=== PATIENT | male | born 1960 | race Caucasian/White ===

== ENCOUNTER → 2021-05-24 10:40 | Outpatient (CLI) | payer BC, SELFPAY ==
--- NOTE | ~2021-05-24 | XR_ITS ---
XR hip LT min 2V DATE: 05/24/2021 11:57 INDICATION: Left hip pain TECHNIQUE: AP and lateral views COMPARISON: None FINDINGS: There is moderate osteoarthritic change at the left hip joint including moderately prominen t spurring of the acetabulum and femoral head. There is mild hip joint space narrowing. No fracture, dislocation, avascular necrosis or bone destruction of the left hip is evident. The pubic symphysis and sacroiliac joints appear intact. IMPRESSION: Moderately prominent osteoarthritic change of left hip Reviewed, dictated and finalized at location A. [employer]
== END ==
PROVIDERS: Visit Provider Family Medicine
DX: M16.12 Unilateral primary osteoarthritis, left hip (principal)
CPT/HCPCS: 73502

== ENCOUNTER 2021-05-31 09:24 | Outpatient (CLI) | payer BC, SELFPAY ==
--- NOTE | ~2021-05-31 | XR_ITS ---
EXAMINATION: XR lg joint inject/asp w image DATE: 05/31/2021 10:18 INDICATION: Left hip arthritis. TECHNIQUE: A time-out was performed to verify the patient's name, date of , and procedure to b e performed. The procedure including the risks, benefits, and alternatives was discussed with the pat ient. Risks discussed included bleeding and infection. The patient understood the risks and agreed to proceed. The skin overlying the left hip joint was prepped and draped in usual sterile fashion. An esthetic was administered with 1% lidocaine subcutaneously. A 22 G needle was advanced under fluoros copic guidance into the joint. Injection of 1 mL of Omnipaque 240 confirmed intra-articular position of the needle. Subsequently, injectate consisting of 5 mL 1% lidocaine and 1 mL 40 mg/mL triamcinol one was instilled. The needle was removed and the entry site was cleaned and dressed. There were no immediate complications. Fluoroscopy exposure time was 0.1 minutes. The total number of images was 2 . FINDINGS: Real-time fluoroscopy demonstrates the needle in the left hip joint. Patient's pain prior t o procedure:5/10. Patient's pain following the procedure: 0/10. IMPRESSION: 1. Fluoroscopy guided left hip joint injection of local anesthetic and steroid with decrease in the p atient's presenting pain. Reviewed, dictated and finalized at location A. [employer] IMPRESSION: 1. Fluoroscopy guided left hip joint injection of local anesthetic and steroid with decrease in the patient's presenting pain.
== END 2021-05-31 09:25 | disposition home or self-care (01) ==
PROVIDERS: PCP Family Medicine; Visit Provider Family Medicine
DX: M16.12 Unilateral primary osteoarthritis, left hip (principal)
CPT/HCPCS: 20610; 77002; J3301; Q9966

== ENCOUNTER 2021-07-16 01:00 | Day surgery (SDC) | payer BC, SELFPAY ==
[2021-07-08 14:44] VITALS: BMI 29.3
[2021-07-16 07:31] VITALS: BP 167/86; PULSE 79; RESP 18; TEMP 36.8; O2SAT 98; BMI 28.9
[2021-07-16] MEDS: LACTATED RINGERS 1,000 ML 150 ML IV CONT (07:37)
--- NOTE | 2021-07-16 07:58 | WPDGICN ---
Assessment and Plan Assessment and plan (1) Encounter for screening colonoscopy: Code(s): Z12.11 - Encounter for screening for malignant neoplasm of colon Status: Acute Assessment and Plan: Patient presents for neoplasia screening. It is been 9 or 10 years since last screening colonoscopy. High-fiber diet is advised. Further recommendations may be given after endoscopy. (2) Fecal urgency: Code(s): R15.2 - Fecal urgency Status: Acute Assessment and Plan: Patient has had a change in bowel habits with fecal urgency. Plan to add fiber to his diet. colonoscopy is scheduled for screening in will be used to evaluate and exclude any organic disease that may be contributing to these changes. GI Consult Note Consult date/time: 07/16/21 07:58 HPI: Sachin Diane is a 60 year old male Presents for neoplasia screening. Patient last colonoscopy was 9 or 10 years previous. Patient reports that over the last 3 months he has had urgency with bowel movements. He denies abdominal pain. He has had no bleeding. His family history is noncontributory. He presents today for screening colonoscopy Review of Systems Review of Systems: All systems reviewed & are unremarkable except as noted in HPI and below PMFSH Past Medical History Medical History (Updated 07/16/21 @ 08:00 by Qamar Zheng MD) Anxiety Arthritis Depression Hypertension Overweight Family History Family History Mother Family history of arthritis Social History Social History Smoking packs per day: 1.5 Smoking cigarettes per day: 30.0 Years smoked: 10 Smoking pack-years: 15.00 Smoking status: Former smoker Smoking end date: 05/04/83 Substance use type: does not use Living arrangements: alone Spiritual care concerns: No Meds Home Medications and Allergies Home Medications Medication Instructions Recorded Confirmed Type amlodipine 10 mg PO DAILY 04/20/19 07/08/21 History buspirone 15 mg PO DAILY 04/20/19 07/08/21 History sertraline 100 mg PO DAILY 04/20/19 07/08/21 History tamsulosin 0.4 mg PO DAILY 04/20/19 07/08/21 History candesartan 4 mg PO DAILY 07/08/21 07/08/21 History finasteride 5 mg PO DAILY 07/08/21 07/08/21 History Allergies Allergy/AdvReac Type Severity Reaction Status Date / Time No Known Allergies Allergy Verified 07/16/21 07:29 Vital Signs Vital Signs - 24 hr 07/16/21 07:31 Temperature 98.2 F Pulse Rate 79 Respiratory Rate 18 Blood Pressure 167/86 H Pulse Oximetry 98 Exam Narrative: physical exam reveals patient to be alert. Vital signs stable. HEENT exam is unremarkable. Patient is anicteric. Lungs are clear to auscultation and percussion. Heart is without murmur or extra sounds. Abdominal exam bowel sounds are present soft nontender with no organomegaly. Digital external rectal exam is normal.
--- NOTE | 2021-07-16 08:05 | WPDANESEPPF ---
Anes - Initial Pre Proc Eval Procedure: Operation Date: 07/16/21 08:30 Proposed Procedures p Screening Colonoscopy - Qamar Zheng MD Date/Time: 07/16/21 08:05 Surgeon: Qamar Zheng MD Pre Op Diagnosis: neoplasm screening Patient Data Age: 60 Gender: M Height: 1.8 m Weight: 94.2 kg Last Vital Signs Temp 98.2 F 07/16/21 07:31 Pulse 79 07/16/21 07:31 Resp 18 07/16/21 07:31 BP 167/86 H 07/16/21 07:31 Pulse Ox 98 07/16/21 07:31 Allergies Allergy/AdvReac Type Severity Reaction Status Date / Time No Known Allergies Allergy Verified 07/16/21 07:29 Home Medications Medication Instructions Recorded Confirmed Type amlodipine 10 mg PO DAILY 04/20/19 07/08/21 History buspirone 15 mg PO DAILY 04/20/19 07/08/21 History sertraline 100 mg PO DAILY 04/20/19 07/08/21 History tamsulosin 0.4 mg PO DAILY 04/20/19 07/08/21 History candesartan 4 mg PO DAILY 07/08/21 07/08/21 History finasteride 5 mg PO DAILY 07/08/21 07/08/21 History Patient hx anesthesia problems: none Family hx anesthesia problems: none Results Review: All pre-operative results and documents have been reviewed as part of the pre-operative evaluation. [facility] Past Medical History Medical History (Updated 07/16/21 @ 08:00 by Qamar Zheng MD) Anxiety Arthritis Depression Hypertension Overweight Family History Family History Mother Family history of arthritis Social History Social History Smoking packs per day: 1.5 Smoking cigarettes per day: 30.0 Years smoked: 10 Smoking pack-years: 15.00 Smoking status: Former smoker Smoking end date: 05/04/83 Substance use type: does not use Living arrangements: alone Spiritual care concerns: No Anes - Eval Final PreProcedure Day of Procedure 07/16/21 08:05 Patient weight: overweight Heart: regular rate and rhythm Lungs: clear to auscultation Airway: Mallampati scale class II Neurological: alert and oriented Last oral intake: >/= 8 hours ASA classification: III Emergent: no Anesthetic plan: proceed Anesthesia type and monitoring: general GIVS and standard monitoring Results Review: All pre-operative results and documents have been reviewed as part of the pre-operative evaluation. Informed Consent: The patient's anesthetic plan and its attendant risks and benefits were discussed with the patient/family/POA. Questions were solicited and answers provided to the satisfaction of the patient/family/POA.
[2021-07-16 08:48] VITALS: BP 123/72; PULSE 60; RESP 24; O2SAT 97
[2021-07-16 08:58] VITALS: BP 118/77; PULSE 57; RESP 19; O2SAT 100
[2021-07-16 09:08] VITALS: BP 126/80; PULSE 58; RESP 19; O2SAT 100
== END 2021-07-16 09:20 | disposition home or self-care (01) ==
PROVIDERS: PCP Family Medicine; Visit Provider Internal Medicine Gastroenterology
PROC: 0DJD8ZZ Inspection of Lower Intestinal Tract, Via Natural or Artificial Opening Endoscopic (ICD-10-PCS; CPT 45378; principal; 2021-07-16 08:30)
DX: Z12.11 Encounter for screening for malignant neoplasm of colon (principal); D12.3 Benign neoplasm of transverse colon; K64.8 Other hemorrhoids; R15.2 Fecal urgency; F41.8 Other specified anxiety disorders; Z87.891 Personal history of nicotine dependence
CPT/HCPCS: 45385; 88305; J2704; J7120

== ENCOUNTER 2021-11-18 12:30 | Outpatient (CLI) | payer BC, SELFPAY ==
--- NOTE | ~2021-11-18 | XR_ITS ---
EXAMINATION: XR lg joint inject/asp w image DATE: 11/18/2021 13:34 INDICATION: Osteoarthritis of left hip. TECHNIQUE: A time-out was performed to verify the patient's name, date of , and procedure to b e performed. The procedure including the risks, benefits, and alternatives was discussed with the pat ient. Risks discussed included bleeding and infection. The patient understood the risks and agreed to proceed. The skin overlying the left hip joint was prepped and draped in usual sterile fashion. An esthetic was administered with 1% lidocaine subcutaneously. A 22 G needle was advanced under fluoros copic guidance into the joint. Subsequently, injectate consisting of 5 mL 1% lidocaine and 1 mL 40 m g/mL triamcinolone was instilled. The needle was removed and the entry site was cleaned and dressed. There were no immediate complications. Fluoroscopy exposure time was 0.1 minutes. The total number of images was 1. FINDINGS: Real-time fluoroscopy demonstrates the needle in the left hip joint. Patient's pain prior t o procedure:4/10. Patient's pain following the procedure: 4/10. IMPRESSION: 1. Fluoroscopy guided left hip joint injection of local anesthetic and steroid . Reviewed, dictated and finalized at location A.
== END 2021-11-18 12:31 | disposition home or self-care (01) ==
PROVIDERS: PCP Family Medicine; Visit Provider Family Medicine
DX: M16.12 Unilateral primary osteoarthritis, left hip (principal)
CPT/HCPCS: 20610; 77002; J3301

== ENCOUNTER 2022-08-12 07:33 | Outpatient (CLI) | payer BC, SELFPAY ==
--- NOTE | 2022-08-12 08:08 | ECG_ITS ---
Measurements Intervals [place] Rate: 66 P: 80 NV: 183 QRS: 70 QRSD: 113 T: 56 QT: 379 QTc: 399 Interpretive Statements SINUS RHYTHM BASELINE ARTIFACT NONSPECIFIC iNTRAVENTRICULAR CONDUCTION DELAY VOLTAGE CRITERIA FOR LVH ABNORMAL ECG COMPARED TO ECG 04/22/2019 09:09:05 NO SIGNIFICANT CHANGES Electronically Signed On 08-12-2022 16:18:47 CDT by Td Aparicio M.D.
[2022-08-12 08:12] LABS: Hematocrit 39.5 % (42.0-52.0); Hemoglobin 13.9 g/dL (14.0-18.0)
[2022-08-12 08:29] LABS: Albumin Level 4.2 g/dL (3.5-5.1); Estimated Glomerular Filt Rate > 60; Glucose 131 mg/dL (65-110)
[2022-08-12 08:55] LABS: Urine Cotinine NEGATIVE
== END 2022-08-12 07:34 | disposition home or self-care (01) ==
PROVIDERS: PCP Family Medicine; Visit Provider Orthopaedic Surgery
DX: M16.12 Unilateral primary osteoarthritis, left hip (principal); I10 Essential (primary) hypertension; Z79.899 Other long term (current) drug therapy; I45.9 Conduction disorder, unspecified
CPT/HCPCS: 80307; 82040; 82565; 82947; 83036; 85014; 85018; 93005

== ENCOUNTER 2022-09-23 13:58 | Outpatient (CLI) | payer BC, SELFPAY ==
[2022-09-23 15:05] LABS: Basophils Percent Auto 0.4 % (0.2-1.2); Eosinophils Absolute Auto 0.1 K/mm3 (0-0.3); Eosinophils Percent Auto 1.2 % (0-4.4); Hematocrit 39.8 % (42.0-52.0); Hemoglobin 13.9 g/dL (14.0-18.0); Immature Granulocyte Absolute 0.01 K/mm3 (0.00-0.031); Immature Granulocyte Percent A 0.2 % (0-0.5); Immature Platelet Fraction Pct 1.2 % (0.9-11.2); Lymphocytes Absolute Auto 0.87 K/mm3 (0.9-3.2); Mean Corpuscular HGB Conc 34.9 g/dl (32-36); Mean Corpuscular Hemoglobin 30.7 pg (26-34); Mean Corpuscular Volume 87.9 fl (80-100); Mean Platelet Volume 8.2 fl (7.4-10.4); Monocytes Absolute Auto 0.4 K/mm3 (0.1-0.6); Monocytes Percent Auto 6.8 % (2.6-8.5); Neutrophils Absolute Auto 3.8 K/mm3 (1.3-6.7); Neutrophils Percent Auto 74.4 % (45.5-73.1); Platelet Count Result 196 k/mm3 (150-375); Red Blood Count 4.53 M/mm3 (4.6-6.20); Red Cell Distribution Width 12.6 % (11.5-14.5); White Blood Count 5.1 K/mm3 (4.5-10.0)
[2022-09-23 15:18] LABS: Albumin Level 4.4 g/dL (3.5-5.1); Estimated Glomerular Filt Rate > 60; Glucose 99 mg/dL (65-110)
[2022-09-23 16:46] LABS: Urine Cotinine NEGATIVE
== END 2022-09-23 13:59 | disposition home or self-care (01) ==
PROVIDERS: PCP Family Medicine; Visit Provider Orthopaedic Surgery
DX: M16.12 Unilateral primary osteoarthritis, left hip (principal); Z01.818 Encounter for other preprocedural examination
CPT/HCPCS: 80307; 82040; 82565; 82947; 85025; 85055; 87081

== ENCOUNTER 2022-10-21 00:51 | Day surgery (SDC) | payer BC, SELFPAY ==
--- NOTE | 2022-09-23 13:29 | PC.NURSE ---
Addendum entered by Altagracia Emery RN 09/23/22 14:28: PT NO LONGER TAKING AMLODIPINE - PT AWARE TO TAKE BUPROPION AM OF SURGERY Original Note: PRE-OP INSTRUCTIONS, PLEASE READ CAREFULLY (SURGERY SCHEDULED FOR 3 HOURS WITH 1 HOUR RECOVERY BEFORE RELEASED TO OUT-PATIENT SURGERY) Report to the Outpatient Waiting Room, entrance under the green pavilion located off [facility], at time _0600_ on date _10/21/22_. Planned Procedure Time: _0730_. PACK A SMALL OVERNIGHT BAG AND LEAVE IN THE CAR Time changes happen often and if your time is changed the preop area will call you the afternoon before. - You and your visitor will be asked to self-screen and do not enter if you have any COVID symptoms. - A mask is optional within the hospital at this time. -VISITING HOURS 8AM-8PM Patients may have clear liquids (water, carbonated beverages, clear teas, apple juice) until 3 hours prior to surgery (0430 AM) with a maximum of 20 ounces. - No food from midnight until time of surgery Take the following medications with a SIP of water the morning of surgery: _AMLODIPINE, SERTRALINE_ DO NOT STOP ANY OF YOUR OTHER PRESCRIPTION MEDICATIONS PRIOR TO SURGERY ?EXCEPT THE FOLLOWING Medications to discontinue per DR. ZAMORA - _IBUPROFEN 7 DAYS PRIOR TO SURGERY, Date to take last dose 10/13/22_ Please no make-up, nail icelandic, hairspray, perfume, deodorant, or body powder the day of surgery. No jewelry (including any body piercings) or valuables the day of surgery, leave them at home. Please take a shower or bath the night before, or the morning of, surgery with an antibacterial soap. Wear comfortable, loose fitting clothing. - Jewelry must be removed prior to entering the operating room. Rings and piercings that are not removed may be cut off. - The hospital will not accept responsibility for valuables. - Please leave all valuables, including medications, at home the day of surgery. If you are going home after surgery, a licensed swing driver must drive you home. - NO public transportation without another adult if you receive anesthesia. - We recommend that an adult stay with you for 24 hours following discharge. - We also recommend that you do not drive, make important decision, drink alcoholic beverages, or take any drugs that were not prescribed by your health care provider for at least 24 hours after your discharge time. Follow any additional instructions given to you from your surgeon. If you or anyone in your household have experienced Covid symptoms in the past week, please notify your surgeon or the nurse liaison at the phone number below for possible testing. Instructions given to _PATIENT_and asked if any additional questions and then verbalized understanding. Patient advised to call surgeon office or pre surgery nurse liaison [phone] if any additional questions.
[2022-09-23 14:18] VITALS: BP 144/72; PULSE 72; RESP 20; TEMP 37; O2SAT 100; BMI 29.9
--- NOTE | 2022-09-23 14:32 | PC.NURSE ---
Addendum entered by Jaqueline Rice RN 10/08/22 12:29: PT PHONED IN, STATES HASN'T TAKEN BUSPAR IN A LONG TIME, ALSO NO LONGER TAKING CANDESARTAN. STATES IS TAKING AMLODIPINE. MED LIST UPDATED, PT INSTRUCTED TO TAKE SERTALINE AND AMLODIPINE MORNING OF SURGERY. Original Note: PRE-OP INSTRUCTIONS, PLEASE READ CAREFULLY (SURGERY SCHEDULED FOR 3 HOURS WITH 1 HOUR RECOVERY BEFORE BEING RELEASED TO OUT-PATIENT RECOVERY) Report to [facility] Outpatient Waiting Room, [facility] at [facility] _[facility]00_ on date _10/21/22_. Planned Procedure Time: _0730_. PACK A SMALL OVERNIGHT BAG AND LEAVE IN THE CAR ALONG WITH YOUR WALKER Time changes happen often and if your time is changed the preop area will call you the afternoon before. - You and your visitor will be asked to self-screen and do not enter if you have any COVID symptoms. - A mask is optional within the hospital at this time. -VISITING HOURS 8AM-8PM Patients may have clear liquids (water, carbonated beverages, clear teas, apple juice) until 3 hours prior to surgery (0430 AM) with a maximum of 20 ounces. - No food from midnight until time of surgery Take the following medications with a SIP of water the morning of surgery: _BUSPIRONE, SERTRALINE_ DO NOT STOP ANY OF YOUR OTHER PRESCRIPTION MEDICATIONS PRIOR TO SURGERY ?EXCEPT THE FOLLOWING Medications to discontinue per DR. ZAMORA - _IBUPROFEN 7 DAYS PRIOR TO SURGERY, Date to take last dose 10/13/22_ Please no make-up, nail italian, hairspray, perfume, deodorant, or body powder the day of surgery. No jewelry (including any body piercings) or valuables the day of surgery, leave them at home. Please take a shower or bath the night before, or the morning of, surgery with an antibacterial soap. Wear comfortable, loose fitting clothing. - Jewelry must be removed prior to entering the operating room. Rings and piercings that are not removed may be cut off. - The hospital will not accept responsibility for valuables. - Please leave all valuables, including medications, at home the day of surgery. If you are going home after surgery, a licensed commercial driver's license driver must drive you home. - NO public transportation without another adult if you receive anesthesia. - We recommend that an adult stay with you for 24 hours following discharge. - We also recommend that you do not drive, make important decision, drink alcoholic beverages, or take any drugs that were not prescribed by your health care provider for at least 24 hours after your discharge time. Follow any additional instructions given to you from your surgeon. If you or anyone in your household have experienced Covid symptoms in the past week, please notify your surgeon or the nurse liaison at the phone number below for possible testing. Instructions given to _PATIENT_and asked if any additional questions and then verbalized understanding. Patient advised to call surgeon office or pre surgery nurse liaison [phone] if any additional questions.
--- NOTE | 2022-10-20 13:10 | WPDANESEPPF ---
Anes - Initial Pre Proc Eval Procedure: Operation Date: 10/21/22 07:30 Proposed Procedures p Left Total Hip Arthroplasty - Grant Chaney MD Date/Time: 10/20/22 13:10 Surgeon: Grant Chaney MD Pre Op Diagnosis: Lt Hip Arthritits Patient Data Age: 62 Gender: M Height: 1.8 m Weight: 97.5 kg Last Vital Signs Temp 37.0 C 09/23/22 14:18 Pulse 72 09/23/22 14:18 Resp 20 09/23/22 14:18 BP 144/72 H 09/23/22 14:18 Pulse Ox 100 09/23/22 14:18 O2 Del Method Room Air 09/23/22 14:18 Allergies Allergy/AdvReac Type Severity Reaction Status Date / Time No Known Allergies Allergy Verified 09/23/22 14:13 Home Medications Medication Instructions Recorded Confirmed Type sertraline 100 mg tablet 100 mg PO DAILY 04/20/19 09/23/22 History tamsulosin 0.4 mg capsule 0.4 mg PO DAILY 04/20/19 09/23/22 History celecoxib 200 mg capsule 200 mg PO DAILY #90 caps 09/22/22 09/23/22 Rx ibuprofen 200 mg capsule 200 mg PO Q6H PRN Pain 09/22/22 09/23/22 History losartan 50 mg tablet 50 mg DAILY 09/23/22 09/23/22 History amlodipine 10 mg tablet 10 mg DAILY 10/08/22 10/08/22 History Patient hx anesthesia problems: none Family hx anesthesia problems: none Results Review: All pre-operative results and documents have been reviewed as part of the pre-operative evaluation. [facility] Past Medical History Medical History Anxiety Anxiety disorder, unspecified Arthritis Benign prostatic hyperplasia with lower urinary tract symptoms Depression Essential (primary) hypertension Generalized osteoarthritis History of stress test Hypertension Induration penis plastica Obstructive sleep apnea (adult) (pediatric) Overweight Personal history of colonic polyps Primary osteoarthritis, unspecified hand Sleep apnea Somnolence Unilateral primary osteoarthritis, right knee Surgical History Surgical History H/O toe surgery (~04/2019) LEFT FOOT History of tooth extraction Hx of arthroscopic knee surgery right knee Family History Family History Mother Family history of arthritis Father Cancer Social History Social History Smoking packs per day: 1.5 Smoking cigarettes per day: 30.0 Years smoked: 10 Smoking pack-years: 15.00 Smoking status: Former smoker Tobacco type: cigarettes Second hand tobacco smoke exposure: No Smoking end date: 05/04/83 Additional smoking assessment comments: PT DENIES ALL FORMS OF TOBACCO USE Alcohol intake: current Alcohol use details: STATES MAYBE 2 DRINKS A MONTH Substance use: never Substance use type: does not use Lack of Transportation: No Lack of Food: Never True Current Housing: I Have Housing Concerned About Future Housing: No Difficulty Paying Gas/Electric Bills: No Difficulty Paying for Meds: No Currently Unemployed: No Education: Trade/Vocational Certificate Difficulty w/ Childcare or Family Care: No Living arrangements: with family Occupation/Education: occupation Gender identity (if verbalized by the patient): Male Sexual Orientation (if Verbalized by the Patient): Straight or Heterosexual Spiritual care concerns: No Anes - Eval Final PreProcedure Day of Procedure 10/20/22 13:10 Patient weight: obese Heart: regular rate and rhythm Lungs: clear to auscultation Airway: Mallampati scale class II Neurological: alert and oriented Last oral intake: >/= 8 hours ASA classification: III Emergent: no Anesthetic plan: proceed Anesthesia type and monitoring: general ETT and standard monitoring Results Review: All pre-operative results and documents have been reviewed as part of the pre-operative evaluation. Informed Consent: The patient's anesthetic plan and its attendant risks and benefits wer
[2022-10-21] VITALS (8 sets, daily range): BP systolic 110–154; BP diastolic 53–87; PULSE 61–78; RESP 16–20; TEMP 36.1; O2SAT 98–100
--- NOTE | ~2022-10-21 | XR_ITS ---
EXAMINATION: XR hip LT min 2V DATE: 10/21/2022 10:48 INDICATION: Left hip arthroplasty TECHNIQUE: 2 views left FINDINGS: There is a left total hip arthroplasty in expected position. Subcutaneous gas with soft ti ssue swelling are consistent with recent surgery. IMPRESSION: 1. Recent left total hip arthroplasty. Reviewed, dictated and finalized at location L.
[2022-10-21] MEDS: LACTATED RINGERS 1,000 ML 30 ML IV CONT ×2 (06:30→10:16)
[2022-10-21] MEDS: ACETAMINOPHEN 500 MG TABLET 1000 MG PO (06:34)
[2022-10-21] MEDS: TRANEXAMIC ACID 1,000MG/ISO100 1,000 MG/100 ML BAG 200 MG IVPB (07:10)
--- NOTE | 2022-10-21 07:17 | WPDHPUPDATE1 ---
History and Physical Update Update Date/Time: 10/21/22 07:17 History and Physical has been reviewed, including an updated exam of the patient. There are NO changes in the patient's condition. Risks, benefits, and alternatives have been discussed and questions answered. Patient agrees to proceed with procedure.
[2022-10-21] MEDS: ceFAZolin 2 GM/D5W 50 ML 2 GM/50 ML BAG IVPB (07:54)
[2022-10-21] MEDS: TRANEXAMIC ACID 1,000 MG/10 ML AMPUL 1000 MG IV PUSH (09:47)
--- NOTE | 2022-10-21 10:48 | W.PM.PROC2 ---
Procedure Note - Detailed Date of Procedure 10/21/22 Pre-op Diagnosis Lt Hip Arthritits Post-op Diagnosis Same Procedure Performed Left Total Hip Arthroplasty Surgeon Grant Chaney MD Anesthesia General Findings Marked contracture. Excellent bone quality required flexible reaming. Implant position and size matched preoperative templating. Increased [place] hip femoral anteversion matched. Combined anteversion appropriate at about 40?. Description of Procedure The patient was given preoperative antibiotics. A general anesthetic was administered. The patient was carefully placed in the lateral decubitus position on the PEG board. The shoulders and hips were carefully positioned for component and leg length positioning reference. The hip was prepped and draped in the usual sterile fashion. A longitudinal incision was created over the posterior aspect of the greater trochanter. Careful dissection was brought down through the deep fascia with electrocautery. A minimally invasive optimized posterior approach to the hip was performed. The short external rotators and capsule were taken down in an L-shaped capsulotomy. The tissue was tagged for later repair using number 2 high strength suture. The femoral neck was measured and taken in situ. The femoral head was removed. The acetabulum was carefully exposed. The inferior capsule was released. The labrum was resected. The acetabulum was sequentially reamed to the intended cup size. The cup was impacted into position with excellent press-fit. Typical anatomic landmarks, including the bony contact points as well as the inferior transverse acetabular ligament were used to confirm cup positioning with preoperative templating. Attention was turned to the femur, which was carefully exposed. The hip was reamed and then broached sequentially. Due to the type a bone, flexible reaming was performed. This allowed a more optimal fit of the size 6 prosthesis without risk of distal tight press-Fit. Excellent press-fit was obtained with the broach. The hip was trialed. Measurements were utilized, including the lesser trochanter as well as the center of the femoral head and the tip of the trochanter, and excellent assessment of the offset and leg lengths were confirmed. The real component was impacted into position. Trialing confirmed appropriate leg length and offset with soft tissue balancing as well apparent feel of the leg, both at the knee and the heel. Soft tissues were assessed using the the iliotibial band. Reduction of the posterior capsule and external rotators were also used as a secondary assessment. The hip was copiously irrigated with pulsatile lavage antibiotic solution periodically throughout the procedure. The real components were then assembled and reduced. The hip was stable throughout typical maneuvers, including extension, external rotation to 70 degrees, the position of sleep as well as flexion to 90 degrees with internal rotation past 45 degrees. The shake test confirmed stability without impingement. Osteophytes were removed as necessary. The short external rotators and capsule were repaired back to the posterior trochanter through drill holes. The deep fascia was repaired with running number 2 Quill suture, followed by 0 Stratafix suture and 2-0 Stratafix suture in the dermis. Steri-Strips were placed on the skin, followed by a sterile silver occlusive dressing. There were no complications. Meticulous hemostasis was maintained with the AquaMantys device. The patient was brought to the recovery room in stable condition. There were no complications. Implants The Accolade II hip stem, 127 degree size 6 , was utilized with excellent press-fit. The 58 mm Trident II acetabular component was impacted with excellent press-fit stability. 10 degree elevated liner. The +5, 36 mm Biolox ceramic femoral head was utilized. Estimated Blood Loss 200 Drains No Packing No Pathology None sent
[2022-10-21] MEDS: oxyCODONE HCL (*CRX) 5 MG TAB IR PO (11:39)
--- NOTE | 2022-10-21 11:49 | SUR.PHASEII ---
PT AND OT working with the patient at this time.
--- NOTE | 2022-10-21 13:32 | PCPTNOTE ---
On 10/21/22, the student, [Emma Pardo], provided care and completed [facility] documentation on this patient. I have reviewed the student's documentation and agree with the findings.
== END 2022-10-21 12:32 | disposition home or self-care (01) ==
PROVIDERS: PCP Family Medicine; Visit Provider Orthopaedic Surgery
PROC: (CPT 27130; principal; 2022-10-21 07:30)
DX: M16.12 Unilateral primary osteoarthritis, left hip (principal); I10 Essential (primary) hypertension; G47.33 Obstructive sleep apnea (adult) (pediatric); F41.9 Anxiety disorder, unspecified; F32.A Depression, unspecified; N40.1 Benign prostatic hyperplasia with lower urinary tract symptoms; Z87.891 Personal history of nicotine dependence; E66.9 Obesity, unspecified; Z68.29 Body mass index [BMI] 29.0-29.9, adult
CPT/HCPCS: 27130; 36415; 73502; 86850; 86900; 86901; 97110; 97161; 97165; 97535; A9270; C1769; C1776; J0171; J0330; J0461; J0690; J1100; J1170; J1885; J2250; J2270; J2405; J2704; J2795; J3010; J7120

== ENCOUNTER 2024-03-14 10:11 | Emergency (ER) | payer BC, SELFPAY ==
--- NOTE | ~2024-03-14 | XR_ITS ---
XR ankle RT min 3V Ordering provider: Cheko Diggs MD History: . pain swelling . Comparison: None. FINDINGS: BONES: No acute fracture or dislocation. Ossification of the insertion of the tendo Achilles. Lucency seen in the medial aspect of the talar dome. Follow-up to exclude AVN is advised. Calcaneal spur. JOINT SPACES: Normal. SOFT TISSUES: Normal. IMPRESSION: No acute osseous abnormality of the right ankle. Lucency in the dome of the talus. AVN is not exclude d. Follow-up advised. Reviewed, dictated and finalized at location A. RATORY WORKER IMPRESSION: No acute osseous abnormality of the right ankle. Lucency in the dome of the umm us. AVN is not excluded. Follow-up advised.
--- NOTE | ~2024-03-14 | XR_ITS ---
XR knee RT 3V Ordering provider: Cheko Diggs MD History: . pain swelling . Comparison: None. FINDINGS: BONES: No acute fracture or dislocation. JOINT SPACES: Osteoarthritic changes of the patellofemoral joint. Osteophyte formation seen in the ti bial spines. Marginal osteophytes in the knee. SOFT TISSUES: Normal. Fluid in the suprapatellar bursa. IMPRESSION: No acute osseous abnormality right knee. Mild osteoarthritic changes of the knee. Moderate osteoarthritic changes of the patellofemoral joint. Fluid in suprapatellar bursa. Reviewed, dictated and finalized at location A. DESIGN ENGINEER
--- NOTE | ~2024-03-14 | US_ITS ---
EXAMINATION: US venous doppler LE RT DATE: 03/14/2024 11:58 INDICATION: Right lower limb pain and swelling. TECHNIQUE: Grayscale ultrasound images without and with compression and Doppler ultrasound images of the right lower extremity veins were obtained. COMPARISON: Ultrasound 11/14/2013 FINDINGS: The visualized portions of right common femoral vein, profunda (deep) femoral vein, femoral vein, pop liteal vein, peroneal veins, posterior tibial veins, and greater saphenous vein outflow are patent. IMPRESSION: 1. No deep venous thrombosis. Reviewed, dictated and finalized at location A. MANAGER
[2024-03-14 10:14] VITALS: BP 142/75; PULSE 70; RESP 20; TEMP 36.6; O2SAT 100
--- NOTE | 2024-03-14 13:00 | ED.GENADULT ---
HPI - General Adult General Chief complaint: Extremity Problem,Nontraumatic Stated complaint: right knee swelling Time Seen by Provider: 03/14/24 12:07 History of Present Illness HPI narrative: patient is a 63-year-old gentleman presents emergency department with chief complaint of right knee and right ankle pain. Patient reports that he has been having swelling in his right knee the patient reports no fever denies redness reports no new trauma patient states that he has had problems with arthritis before it is actually had his knee drained before in the past by his primary and also by Orthopedics. Patient reports that his have having pain with attempting to ambulate reports that it is very difficult to walk patient denies chest pain denies shortness of breath Related Data Allergies Allergy/AdvReac Type Severity Reaction Status Date / Time No Known Allergies Allergy Verified 03/14/24 10:19 Review of Systems Review of Systems: A 10 system review of systems was completed on the patient and is negative except for what is stated in the HPI. Nursing and ancillary documentation was reviewed. [facility] Past Medical History Medical History Benign prostatic hyperplasia with lower urinary tract symptoms Essential (primary) hypertension Fecal urgency Generalized anxiety disorder Generalized osteoarthritis History of stress test Hypertension Induration penis plastica Left hip pain Obstructive sleep apnea (adult) (pediatric) Personal history of colonic polyps Primary osteoarthritis, unspecified hand Unilateral primary osteoarthritis, right knee Surgical History Surgical History H/O toe surgery (~04/2019) LEFT FOOT History of tooth extraction Hx of arthroscopic knee surgery right knee Status post total hip replacement, left (~10/21/22) Family History Family History Mother Family history of arthritis Father Cancer Social History Social History Smoking packs per day: 1.5 Smoking cigarettes per day: 30.0 Years smoked: 10 Smoking pack-years: 15.00 Smoking status: Former smoker Tobacco type: cigarettes Second hand tobacco smoke exposure: No Smoking end date: 05/04/83 Additional smoking assessment comments: PT DENIES ALL FORMS OF TOBACCO USE Alcohol intake: current Alcohol use details: STATES MAYBE 2 DRINKS A MONTH Substance use: never Substance use type: does not use Do You Feel Safe in your Home?: Yes Lack of Transportation: No Lack of Food: Never True Current Housing: I Have Housing Concerned About Future Housing: No Difficulty Paying Gas/Electric Bills: No Difficulty Paying for Meds: No Currently Unemployed: No Education: Trade/Vocational Certificate Difficulty w/ Childcare or Family Care: No Living arrangements: with family Occupation/Education: occupation Gender identity (if verbalized by the patient): Male Sexual Orientation (if Verbalized by the Patient): Straight or Heterosexual Spiritual care concerns: No Exam Narrative: GENERAL: Well-appearing, well-nourished, and in no acute distress. HEAD: Normocephalic, atraumatic. EYES: PERRLA and EOMI. ENT: Nares clear, no rhinorrhea or epistaxis. Mucous membranes moist. NECK: Supple. CHEST: Clear to auscultation. No respiratory distress. HEART: Regular rate and rhythm. No murmur heard. Normal peripheral pulses. ABDOMEN: Soft, nontender, nondistended, normal active bowel sounds. EXTREMITIES: Normal range of motion in all extremities except for right lower extremity. There is a joint effusion present to the right knee there is no erythema there is swelling present of the right ankle but no effusion present. No edema. SKIN: Warm, dry, no rash. NEURO: No focal deficits. Alert and oriented x3. PSYCH: Normal mood and affect. Course Vital Signs Vital signs: Vital Signs Temperature 36.6 C 03/14/24 10:14 Pulse Rate 70 03/14/24 10:14 Respiratory Rate 20 03/14/24 10:14 Blood Pressure 142/75 H 03/14/24 10:14 Pulse Oximetry 100 03/14/24 10:14 Oxygen Delivery Room Air 03/14/24 10:14 Temperature 36.4 C 03/14/24 13:06 Pulse Rate 72 03/14/24 13:06 Respiratory Rate 20 03/14/24 13:06 Blood Pressure 152/76 H 03/14/24 13:06 Pulse Oximetry 99 03/14/24 13:06 Oxygen Delivery Room Air 03/14/24 10:14 Medical Decision Making [facility] Narrative Medical decision making narrative: differential diagnosis includes DVT, joint effusion secondary to arthritis, there is no signs of septic arthritis at this point there is no erythema no cellulitis venous duplex showed no evidence of DVT plain film x-rays have been ordered plan will be to place patient in a knee immobilizer with crutches the cyst and the patient should follow-up with his orthopedic surgeon Vital Signs Vital Signs: Vital Signs Temperature 36.6 C 03/14/24 10:14 Pulse Rate 70 03/14/24 10:14 Respiratory Rate 20 03/14/24 10:14 Blood Pressure 142/75 H 03/14/24 10:14 Pulse Oximetry 100 03/14/24 10:14 Oxygen Delivery Room Air 03/14/24 10:14 Temperature 36.4 C 03/14/24 13:06 Pulse Rate 72 03/14/24 13:06 Respiratory Rate 20 03/14/24 13:06 Blood Pressure 152/76 H 03/14/24 13:06 Pulse Oximetry 99 03/14/24 13:06 Oxygen Delivery Room Air 03/14/24 10:14 Discharge Plan Discharge Clinical Impression: Bursitis of right knee Patient Disposition: Home, Self-Care Condition: Stable Instructions: Antibiotic Form, Crutch Instructions (ED), Swollen Knee Joint (ED), Knee Immobilizer (ED) Additional Instructions: please rest elevate and ice the extremity. Please take the anti-inflammatory on a scheduled basis this takes the place of ibuprofen. If develops fever if you develop redness over the knee please return to the emergency department. Prescriptions: New diclofenac potassium 50 mg tablet 50 mg PO TID PRN (Reason: pain) 10 Days Qty: 30 0RF No Action amlodipine 10 mg tablet 10 mg PO DAILY Qty: 90 1RF tamsulosin 0.4 mg capsule See Rx Instructions .ROUTE .COMPLEX Qty: 90 1RF Dose Instruction: Take 1 capsule by mouth once daily Rx Instructions: Take 1 capsule by mouth once daily finasteride 5 mg tablet 5 mg PO DAILY Qty: 90 1RF losartan 50 mg tablet 50 mg PO DAILY Qty: 90 1RF sertraline 100 mg tablet See Rx Instructions .ROUTE .COMPLEX Qty: 90 1RF Dose Instruction: Take 1 tablet by mouth once daily Rx Instructions: Take 1 tablet by mouth once daily Follow-up/Referrals: Esa Hernandez MD [Physician] - Justus Bran MD [Primary Care Provider] - Grant Chaney MD [Physician] - Time of Disposition: 13:34
[2024-03-14] MEDS: KETOROLAC 30 MG/ML VIAL (*BKC) IM (13:01)
[2024-03-14 13:06] VITALS: BP 152/76; PULSE 72; RESP 20; TEMP 36.4; O2SAT 99
== END 2024-03-14 14:32 | disposition home or self-care (01) ==
PROVIDERS: Emergency Provider Emergency Medicine; PCP Family Medicine
DX: M71.9 Bursopathy, unspecified (principal); I10 Essential (primary) hypertension; F41.1 Generalized anxiety disorder; Z96.642 Presence of left artificial hip joint; Z87.891 Personal history of nicotine dependence
CPT/HCPCS: 73562; 73610; 93971; 96372; 99284; J1885

== ENCOUNTER 2024-04-21 10:44 | Outpatient (CLI) | payer BC, SELFPAY ==
--- NOTE | ~2024-04-21 | MR_ITS ---
MRI of the right ankle Clinical history: Effusion Technique: Coronal proton-density and proton-density fat-sat images, axial proton-density and proton- density fat-sat images, and sagittal proton-density and proton-density fat-sat images were acquired. Findings: Syndesmotic ligaments are intact. Anterior and posterior talofibular ligaments, and calcane ofibular ligament are intact. Deltoid ligament intact. Medial flexor tendons, peroneal tendons, anterior extensor tendons, and Achilles tendon are intact. T here is mild to moderate tendinosis of the very distal tibialis posterior tendon. There is extensive marrow edema at the medial aspect of the talar dome with focal subchondral cystic change. There is extensive marrow edema of the distal fibula and lateral aspect of the distal tibial plafond. No fracture evident. Plantar fascia intact. No soft tissue mass or fluid collection evident. There is diffuse subcutaneous soft tissue edema. Impression: Subchondral cystic change or surrounding marrow edema at the lateral aspect of the talar dome. Findin gs could reflect underlying poorly imaged osteochondral lesion or other chronic degenerative change. Extensive amorphous marrow edema of the distal fibula and lateral aspect of the distal tibial plafond , which could reflect bone contusion versus other reactive marrow edema. No acute fracture evident. Tendinosis of the distal tibial posterior tendon. Reviewed, dictated and finalized at location M. CENTER MANAGER Impression: Subchondral cystic change or surrounding marrow edema at the lateral aspect of the talar dome. Findings could reflect underlying poorly imaged osteochondral l esion or other chronic degenerative change. Extensive amorphous marrow edema of the distal fibula and lateral aspect of the distal tibial plafond, which could reflect bone contusion versus other reactiv e marrow edema. No acute fracture evident. Tendinosis of the distal tibial posterior tendon.
== END 2024-04-21 10:45 | disposition home or self-care (01) ==
LOC: MICIMG 10:45
PROVIDERS: PCP Family Medicine; Visit Provider Orthopaedic Surgery
DX: M25.471 Effusion, right ankle (principal)
CPT/HCPCS: 73721

== ENCOUNTER 2024-06-20 11:20 | Outpatient (CLI) | payer BC, SELFPAY ==
--- NOTE | 2024-06-20 11:37 | ECG_ITS ---
Test Date: 2024-06-20 11:57:26 Measurements Intervals Noble Rate: 60 P: 64 MI: 158 QRS: 50 QRSD: 109 T: 39 QT: 395 QTc: 396 Interpretive Statements SINUS RHYTHM VOLTAGE CRITERIA FOR LVH BASELINE ARTIFACT- I, II, III, AVR, AVL BORDERLINE ECG No previous ECG available for comparison Electronically Signed On 06-20-2024 12:43:37 GAMBLING DEALER by Seng Gloria D.O.
[2024-06-20 12:03] LABS: Hematocrit 36.5 % (42.0-52.0)
--- OUTSIDE RECORDS SUMMARY | 2024-06-20 14:20 | XMS_ITS | Referral Summary ---
Author Organization [facility] Address [address] [place] [id number] Care Team Providers Care Career Resource Specialist Name Role Phone Justus Bran MD Primary Care Provider [phone] Encounters Date Type Department Care Team Description 04/18/2024 2:15 PM POLITICAL SCIENCE FACULTY MEMBER - 04/18/2024 11:59 PM POLITICAL SCIENCE FACULTY MEMBER Hospital Encounter [facility] [address] [place] [id number] Davin Fernandez MD Type III open fracture of olecranon process of left ulna, initial encounter; Closed fracture of distal end of left ulna, unspecified fracture morphology, initial encounter Discharge Disposition: Discharge to home or self care 04/18/2024 2:45 PM POLITICAL SCIENCE FACULTY MEMBER Office Visit [facility] [address] [place] [address] 6[address] [place] [address] [place] [address] Davin Fernandez MD Type III open fracture of olecranon process of left ulna, initial encounter (Primary Dx); Closed fracture of distal end of left ulna, unspecified fracture morphology, initial encounter from Last 3 Months Allergies No known active allergies Medications amLODIPine (NORVASC) 10 mg tablet take 1 tablet by oral route every day 0 0 12/27/2014 Active tamsulosin (FLOMAX) 0.4 mg extended release capsule Take 1 capsule (0.4 mg total) by mouth daily with dinner 01/07/2024 Active finasteride (PROSCAR) 5 mg tablet Take 1 tablet (5 mg total) by mouth daily 01/08/2024 Active sertraline (Zoloft) 25 mg tablet Take 1 tablet (25 mg total) by mouth daily Resume taking your home dose. 01/07/2024 Active losartan (COZAAR) 50 mg tablet Take 1 tablet (50 mg total) by mouth daily 01/26/2024 Active diclofenac (CATAFLAM) 50 mg tablet TAKE 1 TABLET BY MOUTH THREE TIMES DAILY NEEDED FOR PAIN FOR 10 DAYS 03/15/2024 Active Active Problems Problem Noted Date Diagnosed Date Type III open fracture of left olecranon 024 Closed fracture of distal en d of left ulna, unspecified fracture morphology, initial encounter 01/05/2024 Immunizations Immunization Administration Dates Next Due Tdap 01/05/2024 Social History Tobacco Use Types Packs/Day Years Used Date Smoking Tobacco: Never Smokeless Tobacco: Never Tobacco Cessation:Counseling Given: Not Answered Alcohol Use Standard Drinks/Week Comments Yes 0 (1 standard drink = 0.6 oz pur e alcohol) AUDIT-C Answer Date Recorded Q1: How often do you have a drink containing alcohol? Never 01/06/2024 Q2: How many drinks containi ng alcohol do you have on a typical day when you are drinking? Patient does not drink Q3: How often do you have si x or more drinks on one occasion? Never 01/06/2024 Personal Safety Answer Date Recorded Have you ever been in or are you currently in a harmful physical or emotional relationship or is someone making you feel afraid or unsafe? Denies 01/06/2024 Sex and Gender Information Value Date Recorded Sex Assigned at Not on file Legal Sex Male 3:42 AM POLITICAL SCIENCE FACULTY MEMBER Gender Identity Not on file Sexual Orientation Not on file Last Filed Vital Signs Vital Sign Reading Time Taken Comments Blood Pressure 147/70 01/07/2024 8:20 AM CDT Pulse 78 01/07/2024 8:20 AM CDT Temperature 37.4 C (99.3 F) 01/07/2024 8:20 AM CDT Respiratory Rate 16 01/07/2024 8:20 AM CDT Oxygen Saturation 99% 01/07/2024 8:20 AM CDT Inhaled Oxygen Concentration - - Weight 97.5 kg (215 lb) 01/05/2024 11:55 PM CDT Height 180.3 cm (5' 11 ) 01/05/2024 11:55 PM CDT Body Mass Index 29.99 01/05/2024 11:55 PM CDT Plan of Treatment Not on file Medical Devices Implanted Type Area Equipment Service Technician Device Identifier Shelf Expiration Date Model / Serial / Lot Synthes Implant Bone Plate Compression Locking 20 Hole Lcp 2.7mm [id number] - [id number] Implanted:Qty: 1 on 01/06/2024 by Davin Fernandez MD at [facility] Plate Left: Ulna Synthes I 08/31/2033 02.247.390S / / [id number] Synthes Lcp Pro-Karl 76mm 8 Hole Low Profile Cut To Length Plate Bone 247.372 - [id number] Implanted:Qty: 1 on 01/06/2024 by Davin Fernandez MD at [facility] Plate Left: Ulna Synthes I 247.372 / / Synthes Lcp Pro-Karl 76mm 8 Hole Low Profile Cut To Length Plate Bone 247.372 - [id number] Implanted:Qty: 1 on 01/06/2024 by Davin Fernandez MD at [facility] Plate Left: Ulna Synthes I 247.372 / / Synthes Dcp 65mmx1.2mm 3 Hole Head 10 Hole Shaft Foot T Plate Bone 243.234 - [id number] Implanted:Qty: 1 on 01/06/2024 by Davin Fernandez MD at [facility] Plate Left: Ulna Synthes I 243.234 / / Synthes 2.7mm 5mm 18mm 2.5mm Self Tap Stardrive Cortical T8 Screw Bone 202.878 - [id number] Implanted:Qty: 1 on 01/06/2024 by Davin Fernandez MD at [facility] Screw Left: Ulna Synthes I 202.878 / / Synthes 2.7mm 5mm 18mm 2.5mm Self Tap Stardrive Cortical T8 Screw Bone 202.878 - [id number] Implanted:Qty: 1 on 01/06/2024 by Davin Fernandez MD at [facility] Screw Left: Ulna Synthes I 202.878 / / Synthes 2.7mm 5mm 20mm 2.5mm Self Tap Stardrive Cortical T8 Screw Bone 202.880 - [id number] Implanted:Qty: 2 on 01/06/2024 by Davin Fernandez MD at [facility] Screw Left: Ulna Synthes 202.880 / / Synthes 2.7mm 5mm 28mm 2.5mm Self Tap Stardrive Cortical T8 Screw Bone 202.888 - [id number] Implanted:Qty: 1 on 01/06/2024 by Davin Fernandez MD at [facility] Screw Left: Ulna Synthes 202.888 / / Synthes 2.7mm 5mm 28mm 2.5mm Self Tap Stardrive Cortical T8 Screw Bone 202.888 - [id number] Implanted:Qty: 1 on 01/06/2024 by Davin Fernandez MD at [facility] Screw Left: Ulna Synthes 202.888 / / Synthes 2.7mm 5mm 36mm 2.5mm Self Tap Stardrive Cortical T8 Screw Bone 202.896 - [id number] Implanted:Qty: 1 on 01/06/2024 by Davin Fernandez MD at [facility] Screw Left: Ulna Synthes 202.896 / / Synthes 2.7mm 5mm 36mm 2.5mm Self Tap Stardrive Cortical T8 Screw Bone 202.896 - [id number] Implanted:Qty: 1 on 01/06/2024 by Davin Fernandez MD at [facility] Screw Left: Ulna Synthes 202.896 / / Synthes 2.7mm 5mm 50mm 2.5mm Self Tap Stardrive Cortical T8 Screw Bone 202.967 - [id number] Implanted:Qty: 1 on 01/06/2024 by Davin Fernandez MD at [facility] Screw Left: Ulna Synthes I 202.967 / / Synthes 2.7mm 5mm 48mm 2.5mm Self Tap Stardrive Cortical T8 Screw Bone 202.966 - [id number] Implanted:Qty: 1 on 01/06/2024 by Davin Fernandez MD at [facility] Screw Left: Ulna Synthes I 202.966 / / Synthes 2.7mm 5mm 24mm 2.5mm Self Tap Stardrive Cortical T8 Screw Bone 202.884 - [id number] Implanted:Qty: 1 on 01/06/2024 by Davin Fernandez MD at [facility] Screw Left: Ulna Synthes 202.884 / / Synthes 2.7mm 5mm 16mm 2.5mm Self Tap Stardrive Cortical T8 Screw Bone 202.876 - [id number] Implanted:Qty: 2 on 01/06/2024 by Davin Fernandez MD at [facility] Screw Left: Ulna Synthes 202.876 / / Synthes 2.7mm 2.1mm 24mm Self Tap Lock Stardrive Thread Head Profile T8 202.224 - [id number] Implanted:Qty: 1 on 01/06/2024 by Davin Fernandez MD at [facility] Screw Left: Ulna Synthes 202.224 / / Synthes 2.4mm 12mm Self Tap Stardrive Cortex T8 Screw Bone 201.762 - [id number] Implanted:Qty: 1 on 01/06/2024 by Davin Fernandez MD at [facility] Screw Left: Ulna Synthes 201.762 / / Synthes 2.4mm 12mm Self Tap Stardrive Cortex T8 Screw Bone 201.762 - [id number] Implanted:Qty: 1 on 01/06/2024 by Davin Fernandez MD at [facility] Screw Left: Ulna Synthes 201.762 / / Synthes 2.4mm 14mm Self Tap Stardrive Cortex T8 Screw Bone 201.764 - [id number] Implanted:Qty: 1 on 01/06/2024 by Davin Fernandez MD at [facility] Screw Left: Ulna Synthes 201.764 / / Synthes 2.4mm 14mm Self Tap Stardrive Cortex T8 Screw Bone 201.764 - [id number] Implanted:Qty: 1 on 01/06/2024 by Davin Fernandez MD at [facility] Screw Left: Ulna Synthes 201.764 / / Synthes 2.7mm 5mm 30mm 2.5mm Self Tap Stardrive Cortical T8 Screw Bone 202.890 - [id number] Implanted:Qty: 1 on 01/06/2024 by Davin Fernandez MD at [facility] Screw Left: Ulna Synthes 202.890 / / Synthes 2.4mm 22mm Self Tap Stardrive Cortex T8 Screw Bone 201.772 - [id number] Implanted:Qty: 1 on 01/06/2024 by Davin Fernandez MD at [facility] Screw Left: Ulna Synthes 201.772 / / Synthes 2.7mm 5mm 12mm 2.5mm Self Tap Stardrive Cortical T8 Screw Bone 202.872 - [id number] Implanted:Qty: 1 on 01/06/2024 by Davin Fernandez MD at [facility] Screw Left: Ulna Synthes 202.872 / / Explanted Type Area Equipment Service Technician Device Identifier Shelf Expiration Date Model / Serial / Lot Synthes 2.7mm 5mm 24mm 2.5mm Self Tap Stardrive Cortical T8 Screw Bone 202.884 - [id number] Explanted:Qty: 3 on 01/06/2024 by Davin Fernandez MD at [facility] Screw Left: Ulna Synthes 202.884 / / Synthes 2.7mm 5mm 22mm 2.5mm Self Tap Stardrive Cortical T8 Screw Bone 202.882 - [id number] Explanted:Qty: 1 on 01/06/2024 by Davin Fernandez MD at [facility] Screw Left: Ulna Synthes 202.882 / / Synthes 2.7mm 5mm 30mm 2.5mm Self Tap Stardrive Cortical T8 Screw Bone 202.890 - [id number] Explanted:Qty: 1 on 01/06/2024 by Davin Fernandez MD at [facility] Screw Left: Ulna Synthes 202.890 / / Procedures Procedure Name Priority Date/Time Associated Diagnosis Comments XR WRIST LEFT 3 OR MORE VIEWS Schedule Routine, Read Routine (OP Routine) 04/18/2024 2:38 PM POLITICAL SCIENCE FACULTY MEMBER Type III open fracture of olecranon process of left ulna, initial encounter Closed fracture of distal end of left ulna, unspecified fracture morphology, initial encounter XR ELBOW LEFT 3 OR MORE VIEWS Schedule Routine, Read Routine (OP Routine) 04/18/2024 2:38 PM POLITICAL SCIENCE FACULTY MEMBER Type III open fracture of olecranon process of left ulna, initial encounter Closed fracture of distal end of left ulna, unspecified fracture morphology, initial encounter from Last 3 Months Results * XR Wrist Left 3 or More Views (04/18/2024 2:38 PM POLITICAL SCIENCE FACULTY MEMBER) Anatomical Region Laterality Modality Upper Extremities, Wrist Left Compute d Radiography 04/18/2024 4:51 PM POLITICAL SCIENCE FACULTY MEMBER Impressions 04/18/2024 9:06 PM POLITICAL SCIENCE FACULTY MEMBER Healing reduced and internally fixated olecranon and distal ulna metaphysis fractures with intact instrumentation. Dictated by: Ajith Samayoa M.D. The radiology attending physician has personally reviewed this study, and had reviewed and/or edited this written report and agrees with it. Electronically signed by: Dionisio Whitlock D.O. Narrative 04/18/2024 9:06 PM POLITICAL SCIENCE FACULTY MEMBER EXAMINATION: XR ELBOW LEFT 3 OR MORE VIEWS, XR WRIST LEFT 3 OR MORE VIEWS HISTORY: Olecranon process fracture of the left ulna. COMPARISON: 02/22/2024 FINDINGS: Postsurgical changes of open reduction and internal fixation of a comminuted, intra-articular fracture of the olecranon. Intact instrumentation. Interval increase in callus formation and decreased conspicuity of fracture lines consistent with continued healing. No new fracture. Interval decrease in soft tissue swelling. Moderate left elbow osteoarthritis. Small joint effusion. Postsurgical changes of open reduction and internal fixation of a mildly displaced distal ulnar diaphysis fracture. Intact instrumentation. Continued callus formation and periosteal reaction consistent with healing. No new fracture identified. Normal joint spaces. Unchanged mild thumb base and triscaphe osteoarthritis. Unchanged mild metatarsophalangeal osteoarthritis involving the 1st through 4th digits. Procedure Note Dionisio Whitlock, - 04/18/2024 EXAMINATION: XR ELBOW LEFT 3 OR MORE VIEWS, XR WRIST LEFT 3 OR MORE VIEWS HISTORY: Olecranon process fracture of the left ulna. COMPARISON: 02/22/2024 FINDINGS: Postsurgical changes of open reduction and internal fixation of a comminuted, intra-articular fracture of the olecranon. Intact instrumentation. Interval increase in callus formation and decreased conspicuity of fracture lines consistent with continued healing. No new fracture. Interval decrease in soft tissue swelling. Moderate left elbow osteoarthritis. Small joint effusion. Postsurgical changes of open reduction and internal fixation of a mildly displaced distal ulnar diaphysis fracture. Intact instrumentation. Continued callus formation and periosteal reaction consistent with healing. No new fracture identified. Normal joint spaces. Unchanged mild thumb base and triscaphe osteoarthritis. Unchanged mild metatarsophalangeal osteoarthritis involving the 1st through 4th digits. IMPRESSION: Healing reduced and internally fixated olecranon and distal ulna metaphysis fractures with intact instrumentation. Dictated by: Ajith Samayoa M.D. The radiology attending physician has personally reviewed this study, and had reviewed and/or edited this written report and agrees with it. Electronically signed by: Dionisio Whitlock D.O. Davin Fernandez MD IMG XR PROCEDURE S Final Result * X-ray elbow left 3+ views (04/18/2024 2:38 PM POLITICAL SCIENCE FACULTY MEMBER) Anatomical Region Laterality Modality Upper Extremities, Elbow Left Compute d Radiography 04/18/2024 4:51 PM POLITICAL SCIENCE FACULTY MEMBER Impressions 04/18/2024 9:06 PM POLITICAL SCIENCE FACULTY MEMBER Healing reduced and internally fixated olecranon and distal ulna metaphysis fractures with intact instrumentation. Dictated by: Ajith Samayoa M.D. The radiology attending physician has personally reviewed this study, and had reviewed and/or edited this written report and agrees with it. Electronically signed by: Dionisio Whitlock D.O. Narrative 04/18/2024 9:06 PM POLITICAL SCIENCE FACULTY MEMBER EXAMINATION: XR ELBOW LEFT 3 OR MORE VIEWS, XR WRIST LEFT 3 OR MORE VIEWS HISTORY: Olecranon process fracture of the left ulna. COMPARISON: 02/22/2024 FINDINGS: Postsurgical changes of open reduction and internal fixation of a comminuted, intra-articular fracture of the olecranon. Intact instrumentation. Interval increase in callus formation and decreased conspicuity of fracture lines consistent with continued healing. No new fracture. Interval decrease in soft tissue swelling. Moderate left elbow osteoarthritis. Small joint effusion. Postsurgical changes of open reduction and internal fixation of a mildly displaced distal ulnar diaphysis fracture. Intact instrumentation. Continued callus formation and periosteal reaction consistent with healing. No new fracture identified. Normal joint spaces. Unchanged mild thumb base and triscaphe osteoarthritis. Unchanged mild metatarsophalangeal osteoarthritis involving the 1st through 4th digits. Procedure Note Dionisio Whitlock, DO - 04/18/2024 EXAMINATION: XR ELBOW LEFT 3 OR MORE VIEWS, XR WRIST LEFT 3 OR MORE VIEWS HISTORY: Olecranon process fracture of the left ulna. COMPARISON: 02/22/2024 FINDINGS: Postsurgical changes of open reduction and internal fixation of a comminuted, intra-articular fracture of the olecranon. Intact instrumentation. Interval increase in callus formation and decreased conspicuity of fracture lines consistent with continued healing. No new fracture. Interval decrease in soft tissue swelling. Moderate left elbow osteoarthritis. Small joint effusion. Postsurgical changes of open reduction and internal fixation of a mildly displaced distal ulnar diaphysis fracture. Intact instrumentation. Continued callus formation and periosteal reaction consistent with healing. No new fracture identified. Normal joint spaces. Unchanged mild thumb base and triscaphe osteoarthritis. Unchanged mild metatarsophalangeal osteoarthritis involving the 1st through 4th digits. IMPRESSION: Healing reduced and internally fixated olecranon and distal ulna metaphysis fractures with intact instrumentation. Dictated by: Ajith Samayoa M.D. The radiology attending physician has personally reviewed this study, and had reviewed and/or edited this written report and agrees with it. Electronically signed by: Dionisio Whitlock D.O. Davin Fernandez MD IMG XR PROCEDURE S Final Result from Last 3 Months Insurance CHOICE [facility] [place] Direct[place] For more information, please contact: [phone] * Full Code (Latest Code Status on File) Date Activated Date Inactivated Comments 01/06/2024 4:14 PM 01/07/2024 9:34 PM * Full Code Date Activated Date Inactivated Comments 01/05/2024 11:54 PM 01/06/2024 4:14 PM Care Teams Career Resource Specialist Relationship Specialty Start Date End Date Justus Bran MD [address] [place] [id number] PCP - General Family Medicine 04/08/22
--- OUTSIDE RECORDS SUMMARY | 2024-06-20 14:20 | XMS_ITS | Clinical Summary ---
Author Organization [facility] Address [address] [place] [address] Care Team Providers Care Associate Professor Of Geography Name Role Phone Justus Bran MD Primary Care Provider [phone] Allergies No known active allergies Medications amLODIPine [...] ulna, unspecified fracture morphology, initial encounter 01/05/2024 Encounters Date Type Department Care Team Description 04/18/2024 2:45 PM CNC MAINTENANCE MECHANIC Office Visit [facility] Orthopaedic Surgery [address] [facility] 6[address] [place] [address] [place] [address] Davin Fernandez MD Type III open fracture of olecranon process of left ulna, initial encounter (Primary Dx); Closed fracture of distal end of left ulna, unspecified fracture morphology, initial encounter 04/18/2024 2:15 PM CNC MAINTENANCE MECHANIC - 04/18/2024 11:59 PM CNC MAINTENANCE MECHANIC Hospital Encounter [facility] ([facility]) [address] [place] [address] Davin Fernandez MD Type III open fracture of olecranon process of left ulna, initial encounter; Closed fracture of distal end of left ulna, unspecified fracture morphology, initial encounter Discharge Disposition: Discharge to home or self care from Last 3 Months Immunizations Immunization Administration Dates Next Due Tdap 01/05/2024 Medical History Medical History Date Comments Hypertension Hypertension Hx Other Medical DJD Hx Other Medical bilateral carpa l tunnel release surgery Family History Medical History Relation Name Comments Alcohol abuse Brother 3 Alcoholism; Cancer Brother 3 Cancer, unknown ; Cause of : Cancer, unknown Other Mother 2 Unknown; Cause of : Unknown Relation Name Status Comments Brother 1 (Age 76) Brother 2 (Age 76) Brother 3 Mother 1 (Age 89) Mother 2 Social History Tobacco Use Types Packs/Day Years [...] on file Legal Sex Male 3:42 AM CNC MAINTENANCE MECHANIC Gender Identity Not on file Sexual Orientation Not on file Obstetrics History Last Filed Vital Signs Vital Sign Reading [...] 01/05/2024 11:55 PM CDT Plan of Treatment Health Maintenance Due Date Last Done Comments Colon Cancer Screening-Colonoscopy 1960 Depression Screening 1960 Hepatitis C Screening 1960 Prostate Cancer Screening-PSA 1959 Hepatitis B Screening 10/01/1977 Regular Well Visit/Exam 18-64 10/01/1977 Zoster Vaccine (1 of 2) 10/01/2009 Covid-19 Vaccine (3 - 2023-2 5 season) 2024 08/28/2020, 08/07/2020 Influenza Vaccine (#1) 2024 DTaP/Tdap/Td Vaccine (2 - Td or Tdap) 01/04/2034 01/05/2024 Pneumococcal vaccine <65 Aged Out No longer eligible based on patient's age to complete this topic Medical Devices Implanted Type Area Aluminum Pool Installer Device Identifier Shelf Expiration Date Model / Serial / Lot Synthes Implant Bone Plate Compression Locking 20 Hole Lcp 2.7mm [id number] - [id number] Implanted:Qty: 1 on 01/06/2024 by Davin Fernandez MD at [facility] Plate Left: Ulna Synthes I 08/31/2033 02.247.390S / / [id number] Synthes Lcp Pro-Karl 76mm 8 Hole Low Profile Cut To Length Plate Bone 247.372 - [id number] Implanted:Qty: 1 on 01/06/2024 by Davin Fernandez MD at [facility] Plate Left: Ulna Synthes I 247.372 / / Synthes Lcp Pro-Karl 76mm 8 Hole Low Profile Cut To Length Plate Bone 247.372 - [id number] Implanted:Qty: 1 on 01/06/2024 by Davin Fernandez MD at [facility] Plate Left: Ulna Synthes I 247.372 / / Synthes Dcp 65mmx1.2mm 3 Hole Head 10 Hole Shaft Foot T Plate Bone 243.234 - [id number] Implanted:Qty: 1 on 01/06/2024 by Davin Fernandez MD at [facility] Plate Left: Ulna Synthes I 243.234 / / Synthes 2.7mm 5mm 18mm 2.5mm Self Tap Stardrive Cortical T8 Screw Bone 202.878 - [id number] Implanted:Qty: 1 on 01/06/2024 by Davin Fernandez MD at [facility] Screw Left: Ulna Synthes I 202.878 / / Synthes 2.7mm 5mm 18mm 2.5mm Self Tap Stardrive Cortical T8 Screw Bone 202.878 - [id number] Implanted:Qty: 1 on 01/06/2024 by Davin Fernandez MD at [facility] Screw Left: Ulna Synthes I 202.878 / / Synthes 2.7mm 5mm 20mm 2.5mm Self Tap Stardrive Cortical T8 Screw Bone 202.880 - [id number] Implanted:Qty: 2 on 01/06/2024 by Davin Fernandez MD at [facility] Screw Left: Ulna Synthes 202.880 / / Synthes 2.7mm 5mm 28mm 2.5mm Self Tap Stardrive Cortical T8 Screw Bone 202.888 - [id number] Implanted:Qty: 1 on 01/06/2024 by Davin Fernandez MD at [facility] Screw Left: Ulna Synthes 202.888 / / Synthes 2.7mm 5mm 28mm 2.5mm Self Tap Stardrive Cortical T8 Screw Bone 202.888 - [id number] Implanted:Qty: 1 on 01/06/2024 by Davin Fernandez MD at [facility] Screw Left: Ulna Synthes 202.888 / / Synthes 2.7mm 5mm 36mm 2.5mm Self Tap Stardrive Cortical T8 Screw Bone 202.896 - [id number] Implanted:Qty: 1 on 01/06/2024 by Davin Fernandez MD at [facility] Screw Left: Ulna Synthes 202.896 / / Synthes 2.7mm 5mm 36mm 2.5mm Self Tap Stardrive Cortical T8 Screw Bone 202.896 - [id number] Implanted:Qty: 1 on 01/06/2024 by Davin Fernandez MD at [facility] Screw Left: Ulna Synthes 202.896 / / Synthes 2.7mm 5mm 50mm 2.5mm Self Tap Stardrive Cortical T8 Screw Bone 202.967 - [id number] Implanted:Qty: 1 on 01/06/2024 by Davin Fernandez MD at [facility] Screw Left: Ulna Synthes I 202.967 / / Synthes 2.7mm 5mm 48mm 2.5mm Self Tap Stardrive Cortical T8 Screw Bone 202.966 - [id number] Implanted:Qty: 1 on 01/06/2024 by Davin Fernandez MD at [facility] Screw Left: Ulna Synthes I 202.966 / / Synthes 2.7mm 5mm 24mm 2.5mm Self Tap Stardrive Cortical T8 Screw Bone 202.884 - [id number] Implanted:Qty: 1 on 01/06/2024 by Davin Fernandez MD at [facility] Screw Left: Ulna Synthes 202.884 / / Synthes 2.7mm 5mm 16mm 2.5mm Self Tap Stardrive Cortical T8 Screw Bone 202.876 - [id number] Implanted:Qty: 2 on 01/06/2024 by Davin Fernandez MD at [facility] Screw Left: Ulna Synthes 202.876 / / Synthes 2.7mm 2.1mm 24mm Self Tap Lock Stardrive Thread Head Profile T8 202.224 - [id number] Implanted:Qty: 1 on 01/06/2024 by Davin Fernandez MD at [facility] Screw Left: Ulna Synthes 202.224 / / Synthes 2.4mm 12mm Self Tap Stardrive Cortex T8 Screw Bone 201.762 - [id number] Implanted:Qty: 1 on 01/06/2024 by Davin Fernandez MD at [facility] Screw Left: Ulna Synthes 201.762 / / Synthes 2.4mm 12mm Self Tap Stardrive Cortex T8 Screw Bone 201.762 - [id number] Implanted:Qty: 1 on 01/06/2024 by Davin Fernandez MD at [facility] Screw Left: Ulna Synthes 201.762 / / Synthes 2.4mm 14mm Self Tap Stardrive Cortex T8 Screw Bone 201.764 - [id number] Implanted:Qty: 1 on 01/06/2024 by Davin Fernandez MD at [facility] Screw Left: Ulna Synthes 201.764 / / Synthes 2.4mm 14mm Self Tap Stardrive Cortex T8 Screw Bone 201.764 - [id number] Implanted:Qty: 1 on 01/06/2024 by Davin Fernandez MD at [facility] Screw Left: Ulna Synthes 201.764 / / Synthes 2.7mm 5mm 30mm 2.5mm Self Tap Stardrive Cortical T8 Screw Bone 202.890 - [id number] Implanted:Qty: 1 on 01/06/2024 by Davin Fernandez MD at [facility] Screw Left: Ulna Synthes 202.890 / / Synthes 2.4mm 22mm Self Tap Stardrive Cortex T8 Screw Bone 201.772 - [id number] Implanted:Qty: 1 on 01/06/2024 by Davin Fernandez MD at [facility] Screw Left: Ulna Synthes 201.772 / / Synthes 2.7mm 5mm 12mm 2.5mm Self Tap Stardrive Cortical T8 Screw Bone 202.872 - [id number] Implanted:Qty: 1 on 01/06/2024 by Davin Fernandez MD at [facility] Screw Left: Ulna Synthes 202.872 / / Explanted Type Area Aluminum Pool Installer Device Identifier Shelf Expiration Date Model / Serial / Lot Synthes 2.7mm 5mm 24mm 2.5mm Self Tap Stardrive Cortical T8 Screw Bone 202.884 - [id number] Explanted:Qty: 3 on 01/06/2024 by Davin Fernandez MD at [facility] Screw Left: Ulna Synthes 202.884 / / Synthes 2.7mm 5mm 22mm 2.5mm Self Tap Stardrive Cortical T8 Screw Bone 202.882 - [id number] Explanted:Qty: 1 on 01/06/2024 by Davin Fernanedz MD at [facility] Screw Left: Ulna Synthes 202.882 / / Synthes 2.7mm 5mm 30mm 2.5mm Self Tap Stardrive Cortical T8 Screw Bone 202.890 - [id number] Explanted:Qty: 1 on 01/06/2024 by Davin Fernandez MD at [facility] Screw Left: Ulna Synthes 202.890 / / Procedures Procedure Name Priority Date/Time Associated Diagnosis Comments XR WRIST LEFT 3 OR MORE VIEWS Schedule Routine, Read Routine (OP Routine) 04/18/2024 2:38 PM CNC MAINTENANCE MECHANIC Type III open fracture of olecranon process of left ulna, initial encounter Closed fracture of distal end of left ulna, unspecified fracture morphology, initial encounter XR ELBOW LEFT 3 OR MORE VIEWS Schedule Routine, Read Routine (OP Routine) 04/18/2024 2:38 PM CNC MAINTENANCE MECHANIC Type III open fracture of olecranon process of left ulna, initial encounter Closed fracture of distal end of left ulna, unspecified fracture morphology, initial encounter from Last 3 Months Results * XR Wrist Left 3 or More Views (04/18/2024 2:38 PM CNC MAINTENANCE MECHANIC) Anatomical Region Laterality Modality Upper Extremities, Wrist Left Compute d Radiography 04/18/2024 4:51 PM CNC MAINTENANCE MECHANIC Impressions 04/18/2024 9:06 PM CNC MAINTENANCE MECHANIC Healing reduced and internally fixated olecranon and distal ulna metaphysis fractures with intact instrumentation. Dictated by: Ajith Samayoa M.D. The radiology attending physician has personally reviewed this study, and had reviewed and/or edited this written report and agrees with it. Electronically signed by: Dionisio Whitlock D.O. Narrative 04/18/2024 9:06 PM CNC MAINTENANCE MECHANIC EXAMINATION: XR ELBOW LEFT 3 OR MORE [...] elbow left 3+ views (04/18/2024 2:38 PM CNC MAINTENANCE MECHANIC) Anatomical Region Laterality Modality Upper Extremities, Elbow Left Compute d Radiography 04/18/2024 4:51 PM CNC MAINTENANCE MECHANIC Impressions 04/18/2024 9:06 PM CNC MAINTENANCE MECHANIC Healing reduced and internally fixated olecranon and distal ulna metaphysis fractures with intact instrumentation. Dictated by: Ajith Samayoa M.D. The radiology attending physician has personally reviewed this study, and had reviewed and/or edited this written report and agrees with it. Electronically signed by: Dionisio Whitlock D.O. Narrative 04/18/2024 9:06 PM CNC MAINTENANCE MECHANIC EXAMINATION: XR ELBOW LEFT 3 OR MORE [...] Final Result from Last 3 Months Insurance BL CHOICE [place]F PPO [place] Advance Directives For more information, please contact: [phone] * Full Code (Latest Code Status on File) Date Activated Date Inactivated Comments 01/06/2024 4:14 PM 01/07/2024 9:34 PM * Full Code Date Activated Date Inactivated Comments 01/05/2024 11:54 PM 01/06/2024 4:14 PM Care Teams Associate Professor Of Geography Relationship Specialty Start Date End Date Justus Bran MD [address] [place], [place] [address] PCP - General Family Medicine 04/08/22
[2024-06-20 15:16] LABS: Albumin Level 3.9 g/dL (3.5-5.1); Estimated Glomerular Filt Rate > 60; Glucose 96 mg/dL (65-110)
== END 2024-06-20 11:21 | disposition home or self-care (01) ==
PROVIDERS: PCP Family Medicine; Visit Provider Orthopaedic Surgery
DX: I10 Essential (primary) hypertension (principal); M19.071 Primary osteoarthritis, right ankle and foot
CPT/HCPCS: 36415; 82040; 82565; 82947; 85014; 85018; 93005

== ENCOUNTER 2024-08-24 13:48 | Outpatient (CLI) | payer BC, SELFPAY ==
--- OUTSIDE RECORDS SUMMARY | 2024-08-24 15:48 | XMS_ITS | Referral Summary ---
Author Organization [facility] Address [address] [place] [address] Care Team Providers Care District Director Name Role Phone Justus Bran MD Primary Care Provider [phone] Encounters Date Type Department Care Team Description 07/15/2024 1:30 PM CDT - 07/15/2024 11:59 PM CDT Hospital Encounter [facility] [address] [place] [address] Davin Fernandez MD Type III open fracture of olecranon process of left ulna, initial encounter; Closed fracture of distal end of left ulna, unspecified fracture morphology, initial encounter Discharge Disposition: Discharge to home or self care 07/15/2024 2:00 PM CDT Office Visit [facility] Orthopaedic Surgery [address] [place] [address] Advanced Medicine 6th [place] [address] [place] [address] Davin Fernandez MD Type III open fracture [...] mg total) by mouth daily 01/26/2024 Active meloxicam (MOBIC) 15 mg tablet Take 1 tablet (15 mg total) by mouth daily 06/08/2024 Active sildenafiL (VIAGRA) 100 mg tablet TAKE 1 TABLET BY MOUTH ONCE DAILY NEEDED FOR SEXUAL ACTIVITY. TAKE 30 MINUTES TO 4 HOURS BEFORE ACTIVITY. 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 Gender Identity Not on file Sexual Orientation [...] on file Medical Devices Implanted Type Area Tennis Court Attendant Device Identifier Shelf Expiration Date Model / Serial / Lot Synthes Implant Bone Plate Compression Locking 20 Hole Lcp 2.7mm [id number] - [id number] Implanted:Qty: 1 on 01/06/2024 by Davin Fernandez MD at [facility] Plate Left: Ulna Synthes I 08/31/2033 02.247.390S / / [id number] Synthes Lcp Pro-Karl 76mm 8 Hole Low Profile Cut To Length Plate Bone 247.372 - [id number] Implanted:Qty: 1 on 01/06/2024 by Davin Fernandez MD at [facility] Plate Left: Ulna Synthes I 247.372 / / Synthes Lcp Pro-Karl 76mm 8 Hole Low Profile Cut To Length Plate Bone 247.372 - [id number] Implanted:Qty: 1 on 01/06/2024 by Davin Fernandez MD at [facility] Plate Left: Ulna Synthes I 247.372 / / Synthes Dcp 65mmx1.2mm 3 Hole Head 10 Hole Shaft Foot T Plate Bone 243.234 - [id number] Implanted:Qty: 1 on 01/06/2024 by Davin Fernandez MD at [facility] Plate Left: Ulna Synthes I 243.234 / / Synthes 2.7mm 5mm 18mm 2.5mm Self Tap Stardrive Cortical T8 Screw Bone 202.878 - [id number] Implanted:Qty: 1 on 01/06/2024 by Davin Fernandez MD at [facility] Screw Left: Ulna Synthes I 202.878 / / Synthes 2.7mm 5mm 18mm 2.5mm Self Tap Stardrive Cortical T8 Screw Bone 202.878 - [id number] Implanted:Qty: 1 on 01/06/2024 by Davin Fernandez MD at [facility] Screw Left: Ulna Synthes I 202.878 / / Synthes 2.7mm 5mm 20mm 2.5mm Self Tap Stardrive Cortical T8 Screw Bone 202.880 - [id number] Implanted:Qty: 2 on 01/06/2024 by Davin Fernandez MD at [facility] Screw Left: Ulna Synthes 202.880 / / Synthes 2.7mm 5mm 28mm 2.5mm Self Tap Stardrive Cortical T8 Screw Bone 202.888 - [id number] Implanted:Qty: 1 on 01/06/2024 by Davin Fernandez MD at [facility] Screw Left: Ulna Synthes 202.888 / / Synthes 2.7mm 5mm 28mm 2.5mm Self Tap Stardrive Cortical T8 Screw Bone 202.888 - [id number] Implanted:Qty: 1 on 01/06/2024 by Davin Fernandez MD at [facility] Screw Left: Ulna Synthes 202.888 / / Synthes 2.7mm 5mm 36mm 2.5mm Self Tap Stardrive Cortical T8 Screw Bone 202.896 - [id number] Implanted:Qty: 1 on 01/06/2024 by Davin Fernandez MD at [facility] Screw Left: Ulna Synthes 202.896 / / Synthes 2.7mm 5mm 36mm 2.5mm Self Tap Stardrive Cortical T8 Screw Bone 202.896 - [id number] Implanted:Qty: 1 on 01/06/2024 by Davin Fernandez MD at [facility] Screw Left: Ulna Synthes 202.896 / / Synthes 2.7mm 5mm 50mm 2.5mm Self Tap Stardrive Cortical T8 Screw Bone 202.967 - [id number] Implanted:Qty: 1 on 01/06/2024 by Davin Fernandez MD at [facility] Screw Left: Ulna Synthes I 202.967 / / Synthes 2.7mm 5mm 48mm 2.5mm Self Tap Stardrive Cortical T8 Screw Bone 202.966 - [id number] Implanted:Qty: 1 on 01/06/2024 by Davin Fernandez MD at [facility] Screw Left: Ulna Synthes I 202.966 / / Synthes 2.7mm 5mm 24mm 2.5mm Self Tap Stardrive Cortical T8 Screw Bone 202.884 - [id number] Implanted:Qty: 1 on 01/06/2024 by Davin Fernandez MD at [facility] Screw Left: Ulna Synthes 202.884 / / Synthes 2.7mm 5mm 16mm 2.5mm Self Tap Stardrive Cortical T8 Screw Bone 202.876 - [id number] Implanted:Qty: 2 on 01/06/2024 by Davin Fernandez MD at [facility] Screw Left: Ulna Synthes 202.876 / / Synthes 2.7mm 2.1mm 24mm Self Tap Lock Stardrive Thread Head Profile T8 202.224 - [id number] Implanted:Qty: 1 on 01/06/2024 by Davin Fernandez MD at [facility] Screw Left: Ulna Synthes 202.224 / / Synthes 2.4mm 12mm Self Tap Stardrive Cortex T8 Screw Bone 201.762 - [id number] Implanted:Qty: 1 on 01/06/2024 by Davin Fernandez MD at [facility] Screw Left: Ulna Synthes 201.762 / / Synthes 2.4mm 12mm Self Tap Stardrive Cortex T8 Screw Bone 201.762 - [id number] Implanted:Qty: 1 on 01/06/2024 by Davin Fernandez MD at [facility] Screw Left: Ulna Synthes 201.762 / / Synthes 2.4mm 14mm Self Tap Stardrive Cortex T8 Screw Bone 201.764 - [id number] Implanted:Qty: 1 on 01/06/2024 by Davin Fernandez MD at [facility] Screw Left: Ulna Synthes 201.764 / / Synthes 2.4mm 14mm Self Tap Stardrive Cortex T8 Screw Bone 201.764 - [id number] Implanted:Qty: 1 on 01/06/2024 by Davin Fernandez MD at [facility] Screw Left: Ulna Synthes 201.764 / / Synthes 2.7mm 5mm 30mm 2.5mm Self Tap Stardrive Cortical T8 Screw Bone 202.890 - [id number] Implanted:Qty: 1 on 01/06/2024 by Davin Fernandez MD at [facility] Screw Left: Ulna Synthes 202.890 / / Synthes 2.4mm 22mm Self Tap Stardrive Cortex T8 Screw Bone 201.772 - [id number] Implanted:Qty: 1 on 01/06/2024 by Davin Fernandez MD at [facility] Screw Left: Ulna Synthes 201.772 / / Synthes 2.7mm 5mm 12mm 2.5mm Self Tap Stardrive Cortical T8 Screw Bone 202.872 - [id number] Implanted:Qty: 1 on 01/06/2024 by Davin Fernandez MD at [facility] Screw Left: Ulna Synthes 202.872 / / Explanted Type Area Tennis Court Attendant Device Identifier Shelf Expiration Date Model / Serial / Lot Synthes 2.7mm 5mm 24mm 2.5mm Self Tap Stardrive Cortical T8 Screw Bone 202.884 - [id number] Explanted:Qty: 3 on 01/06/2024 by Davin Fernandez MD at [facility] Screw Left: Ulna Synthes 202.884 / / Synthes 2.7mm 5mm 22mm 2.5mm Self Tap Stardrive Cortical T8 Screw Bone 202.882 - [id number] Explanted:Qty: 1 on 01/06/2024 by Davin Fernandez MD at [facility] Screw Left: Ulna Synthes 202.882 / / Synthes 2.7mm 5mm 30mm 2.5mm Self Tap Stardrive Cortical T8 Screw Bone 202.890 - [id number] Explanted:Qty: 1 on 01/06/2024 by Davin Fernandez MD at [facility] Screw Left: Ulna Synthes 202.890 / / Procedures Procedure Name Priority Date/Time Associated Diagnosis Comments XR ELBOW LEFT 3 OR MORE VIEWS Schedule Routine, Read Routine (OP Routine) 07/15/2024 2:21 PM CDT Type III open fracture of olecranon process of left ulna, initial encounter Closed fracture of distal end of left ulna, unspecified fracture morphology, initial encounter XR WRIST LEFT 3 OR MORE VIEWS Schedule Routine, Read Routine (OP Routine) 07/15/2024 2:21 PM CDT Type III open fracture of olecranon process of left ulna, initial encounter Closed fracture of distal end of left ulna, unspecified fracture morphology, initial encounter from Last 3 Months Results * XR Wrist Left 3 or More Views (07/15/2024 2:21 PM CDT) Anatomical Region Laterality Modality Upper Extremities, Wrist Left Compute d Radiography 07/15/2024 3:37 PM CDT Impressions 07/15/2024 3:58 PM CDT 1. Healing internally fixated mildly displaced distal ulnar diaphyseal fracture. 2. Healing internally fixated comminuted intra-articular olecranon fracture. Dictated by: Barak Rincon M.D. The radiology attending physician has personally reviewed this study, and had reviewed and/or edited this written report and agrees with it. Electronically signed by: Junaid Kirk D.O. Narrative 07/15/2024 3:58 PM CDT EXAMINATION: XR WRIST LEFT 3 OR MORE VIEWS, XR ELBOW LEFT 3 OR MORE VIEWS HISTORY: Olecranon and distal ulnar fracture. COMPARISON: Radiographs 04/18/2024. FINDINGS: Left wrist: No new fracture. Unchanged postsurgical evidence of open reduction and internal fixation of a healing mildly displaced distal ulnar diaphyseal fracture with 2 plate and screw constructs. Intact instrumentation. Joint spaces maintained. 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 Ossific fragment at the dorsal wrist posterior to the triquetrum may represent remote triquetral fracture. Left elbow: No new fracture. Unchanged postsurgical evidence of open reduction and internal fixation of comminuted intra-articular olecranon fracture with plate and screw construct and interfragmentary screw. Intact instrumentation. Persistent small elbow effusion. Focus of heterotopic ossification at the lateral and medial humeral epicondyles. Procedure Note Junaid Kirk, DO - 07/15/2024 EXAMINATION: XR WRIST LEFT 3 OR MORE VIEWS, XR ELBOW LEFT 3 OR MORE VIEWS HISTORY: Olecranon and distal ulnar fracture. COMPARISON: Radiographs 04/18/2024. FINDINGS: Left wrist: No new fracture. Unchanged postsurgical evidence of open reduction and internal fixation of a healing mildly displaced distal ulnar diaphyseal fracture with 2 plate and screw constructs. Intact instrumentation. Joint spaces maintained. 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 Ossific fragment at the dorsal wrist posterior to the triquetrum may represent remote triquetral fracture. Left elbow: No new fracture. Unchanged postsurgical evidence of open reduction and internal fixation of comminuted intra-articular olecranon fracture with plate and screw construct and interfragmentary screw. Intact instrumentation. Persistent small elbow effusion. Focus of heterotopic ossification at the lateral and medial humeral epicondyles. IMPRESSION: 1. Healing internally fixated mildly displaced distal ulnar diaphyseal fracture. 2. Healing internally fixated comminuted intra-articular olecranon fracture. Dictated by: Barak Rincon M.D. The radiology attending physician has personally reviewed this study, and had reviewed and/or edited this written report and agrees with it. Electronically signed by: Junaid Kirk D.O. us Davin Fernandez MD IMG XR PROCEDURE S Final Result * X-ray elbow left 3+ views (07/15/2024 2:21 PM CDT) Anatomical Region Laterality Modality Upper Extremities, Elbow Left Compute d Radiography 07/15/2024 3:37 PM CDT Impressions 07/15/2024 3:58 PM CDT 1. Healing internally fixated mildly displaced distal ulnar diaphyseal fracture. 2. Healing internally fixated comminuted intra-articular olecranon fracture. Dictated by: Barak Rincon M.D. The radiology attending physician has personally reviewed this study, and had reviewed and/or edited this written report and agrees with it. Electronically signed by: Junaid Kirk D.O. Narrative 07/15/2024 3:58 PM CDT EXAMINATION: XR WRIST LEFT 3 OR MORE VIEWS, XR ELBOW LEFT 3 OR MORE VIEWS HISTORY: Olecranon and distal ulnar fracture. COMPARISON: Radiographs 04/18/2024. FINDINGS: Left wrist: No new fracture. Unchanged postsurgical evidence of open reduction and internal fixation of a healing mildly displaced distal ulnar diaphyseal fracture with 2 plate and screw constructs. Intact instrumentation. Joint spaces maintained. 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 Ossific fragment at the dorsal wrist posterior to the triquetrum may represent remote triquetral fracture. Left elbow: No new fracture. Unchanged postsurgical evidence of open reduction and internal fixation of comminuted intra-articular olecranon fracture with plate and screw construct and interfragmentary screw. Intact instrumentation. Persistent small elbow effusion. Focus of heterotopic ossification at the lateral and medial humeral epicondyles. Procedure Note Reagan Junaid Amanda, DO - 07/15/2024 EXAMINATION: XR WRIST LEFT 3 OR MORE VIEWS, XR ELBOW LEFT 3 OR MORE VIEWS HISTORY: Olecranon and distal ulnar fracture. COMPARISON: Radiographs 04/18/2024. FINDINGS: Left wrist: No new fracture. Unchanged postsurgical evidence of open reduction and internal fixation of a healing mildly displaced distal ulnar diaphyseal fracture with 2 plate and screw constructs. Intact instrumentation. Joint spaces maintained. 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 Ossific fragment at the dorsal wrist posterior to the triquetrum may represent remote triquetral fracture. Left elbow: No new fracture. Unchanged postsurgical evidence of open reduction and internal fixation of comminuted intra-articular olecranon fracture with plate and screw construct and interfragmentary screw. Intact instrumentation. Persistent small elbow effusion. Focus of heterotopic ossification at the lateral and medial humeral epicondyles. IMPRESSION: 1. Healing internally fixated mildly displaced distal ulnar diaphyseal fracture. 2. Healing internally fixated comminuted intra-articular olecranon fracture. Dictated by: Barak Rincon M.D. The radiology attending physician has personally reviewed this study, and had reviewed and/or edited this written report and agrees with it. Electronically signed by: Junaid Kirk D.O. Davin Fernandez MD IMG XR PROCEDURE S Final Result from Last 3 Months Insurance [place] Advance Directives For more information, please contact: [phone] * Full Code (Latest Code Status on File) Date Activated Date Inactivated Comments 01/06/2024 4:14 PM 01/07/2024 9:34 PM * Full Code Date Activated Date Inactivated Comments 01/05/2024 11:54 PM 01/06/2024 4:14 PM Care Teams District Director Relationship Specialty Start Date End Date Justus Bran MD [address] [place] [address] [place] [address] PCP - General Family Medicine 04/08/22
--- OUTSIDE RECORDS SUMMARY | 2024-08-24 15:48 | XMS_ITS | Clinical Summary ---
Author Organization [facility] Address [address] [place] [address] Care Team Providers Care Ex Assistant/Program Director Name Role Phone Justus Bran MD Primary Care Provider [phone] Allergies No known active allergies Medications amLODIPine [...] Date Type Department Care Team Description 07/15/2024 2:00 PM CDT Office Visit [facility] Orthopaedic Surgery [address] [facility] 6th [place] [address] [place] [address] Davin Fernandez MD Type III open fracture of olecranon process of left ulna, initial encounter (Primary Dx); Closed fracture of distal end of left ulna, unspecified fracture morphology, initial encounter 07/15/2024 1:30 PM CDT - 07/15/2024 11:59 PM CDT Hospital Encounter [facility] [place] [facility] [address] [place] [address] Davin Fernandez MD Type III open fracture [...] on file 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 Gender Identity Not on file Sexual Orientation [...] 5 season) 2024 08/28/2020, 08/07/2020 Influenza Vaccine (Season Ended) 2025 DTaP/Tdap/Td Vaccine (2 - Td or Tdap) 01/04/2034 01/05/2024 Pneumococcal vaccine <65 Aged Out No longer eligible based on patient's age to complete this topic Medical Devices Implanted Type Area Cocktail Lounge Manager Device Identifier Shelf Expiration Date Model / Serial / Lot Synthes Implant Bone Plate Compression Locking 20 Hole Lcp 2.7mm [id number] - [id number] Implanted:Qty: 1 on 01/06/2024 by Davin Fernandez MD at [facility] Plate Left: Ulna Synthes I 08/31/2033 02.247.390S / / [id number] Synthes Lcp Pro-Karl 76mm 8 Hole Low Profile Cut To Length Plate Bone 247.372 - [id number] Implanted:Qty: 1 on 01/06/2024 by Davin Fernandez MD at [facility] Plate Left: Ulna Synthes I 247.372 / / Synthes Lcp Pro-Karl 76mm 8 Hole Low Profile Cut To Length Plate Bone 247.372 - [id number] Implanted:Qty: 1 on 01/06/2024 by Davin Fernandez MD at [facility] Plate Left: Ulna Synthes I 247.372 / / Synthes Dcp 65mmx1.2mm 3 Hole Head 10 Hole Shaft Foot T Plate Bone 243.234 - [id number] Implanted:Qty: 1 on 01/06/2024 by Davin Fernandez MD at [facility] Plate Left: Ulna Synthes I 243.234 / / Synthes 2.7mm 5mm 18mm 2.5mm Self Tap Stardrive Cortical T8 Screw Bone 202.878 - [id number] Implanted:Qty: 1 on 01/06/2024 by Davin Fernandez MD at [facility] Screw Left: Ulna Synthes I 202.878 / / Synthes 2.7mm 5mm 18mm 2.5mm Self Tap Stardrive Cortical T8 Screw Bone 202.878 - [id number] Implanted:Qty: 1 on 01/06/2024 by Davin Fernandez MD at [facility] Screw Left: Ulna Synthes I 202.878 / / Synthes 2.7mm 5mm 20mm 2.5mm Self Tap Stardrive Cortical T8 Screw Bone 202.880 - [id number] Implanted:Qty: 2 on 01/06/2024 by Davin Fernandez MD at [facility] Screw Left: Ulna Synthes 202.880 / / Synthes 2.7mm 5mm 28mm 2.5mm Self Tap Stardrive Cortical T8 Screw Bone 202.888 - [id number] Implanted:Qty: 1 on 01/06/2024 by Davin Fernandez MD at [facility] Screw Left: Ulna Synthes 202.888 / / Synthes 2.7mm 5mm 28mm 2.5mm Self Tap Stardrive Cortical T8 Screw Bone 202.888 - [id number] Implanted:Qty: 1 on 01/06/2024 by Davin Fernandez MD at [facility] Screw Left: Ulna Synthes 202.888 / / Synthes 2.7mm 5mm 36mm 2.5mm Self Tap Stardrive Cortical T8 Screw Bone 202.896 - [id number] Implanted:Qty: 1 on 01/06/2024 by Davin Fernandez MD at [facility] Screw Left: Ulna Synthes 202.896 / / Synthes 2.7mm 5mm 36mm 2.5mm Self Tap Stardrive Cortical T8 Screw Bone 202.896 - [id number] Implanted:Qty: 1 on 01/06/2024 by Davin Fernandez MD at [facility] Screw Left: Ulna Synthes 202.896 / / Synthes 2.7mm 5mm 50mm 2.5mm Self Tap Stardrive Cortical T8 Screw Bone 202.967 - [id number] Implanted:Qty: 1 on 01/06/2024 by Davin Fernandez MD at [facility] Screw Left: Ulna Synthes I 202.967 / / Synthes 2.7mm 5mm 48mm 2.5mm Self Tap Stardrive Cortical T8 Screw Bone 202.966 - [id number] Implanted:Qty: 1 on 01/06/2024 by Davin Fernandez MD at [facility] Screw Left: Ulna Synthes I 202.966 / / Synthes 2.7mm 5mm 24mm 2.5mm Self Tap Stardrive Cortical T8 Screw Bone 202.884 - [id number] Implanted:Qty: 1 on 01/06/2024 by Davin Fernandez MD at [facility] Screw Left: Ulna Synthes 202.884 / / Synthes 2.7mm 5mm 16mm 2.5mm Self Tap Stardrive Cortical T8 Screw Bone 202.876 - [id number] Implanted:Qty: 2 on 01/06/2024 by Davin Fernandez MD at [facility] Screw Left: Ulna Synthes 202.876 / / Synthes 2.7mm 2.1mm 24mm Self Tap Lock Stardrive Thread Head Profile T8 202.224 - [id number] Implanted:Qty: 1 on 01/06/2024 by Davin Fernandez MD at [facility] Screw Left: Ulna Synthes 202.224 / / Synthes 2.4mm 12mm Self Tap Stardrive Cortex T8 Screw Bone 201.762 - [id number] Implanted:Qty: 1 on 01/06/2024 by Davin Fernandez MD at [facility] Screw Left: Ulna Synthes 201.762 / / Synthes 2.4mm 12mm Self Tap Stardrive Cortex T8 Screw Bone 201.762 - [id number] Implanted:Qty: 1 on 01/06/2024 by Davin Fernandez MD at [facility] Screw Left: Ulna Synthes 201.762 / / Synthes 2.4mm 14mm Self Tap Stardrive Cortex T8 Screw Bone 201.764 - [id number] Implanted:Qty: 1 on 01/06/2024 by Davin Fernandez MD at [facility] Screw Left: Ulna Synthes 201.764 / / Synthes 2.4mm 14mm Self Tap Stardrive Cortex T8 Screw Bone 201.764 - [id number] Implanted:Qty: 1 on 01/06/2024 by Davin Fernandez MD at [facility] Screw Left: Ulna Synthes 201.764 / / Synthes 2.7mm 5mm 30mm 2.5mm Self Tap Stardrive Cortical T8 Screw Bone 202.890 - [id number] Implanted:Qty: 1 on 01/06/2024 by Davin Fernandez MD at [facility] Screw Left: Ulna Synthes 202.890 / / Synthes 2.4mm 22mm Self Tap Stardrive Cortex T8 Screw Bone 201.772 - [id number] Implanted:Qty: 1 on 01/06/2024 by Davin Fernandez MD at [facility] Screw Left: Ulna Synthes 201.772 / / Synthes 2.7mm 5mm 12mm 2.5mm Self Tap Stardrive Cortical T8 Screw Bone 202.872 - [id number] Implanted:Qty: 1 on 01/06/2024 by Davin Fernandez MD at [facility] Screw Left: Ulna Synthes 202.872 / / Explanted Type Area Cocktail Lounge Manager Device Identifier Shelf Expiration Date Model / Serial / Lot Synthes 2.7mm 5mm 24mm 2.5mm Self Tap Stardrive Cortical T8 Screw Bone 202.884 - [id number] Explanted:Qty: 3 on 01/06/2024 by Davin Fernandez MD at [facility] Screw Left: Ulna Synthes 202.884 / / Synthes 2.7mm 5mm 22mm 2.5mm Self Tap Stardrive Cortical T8 Screw Bone 202.882 - [id number] Explanted:Qty: 1 on 01/06/2024 by Davin Fernandez MD at [facility] Screw Left: Ulna Synthes 202.882 / / Synthes 2.7mm 5mm 30mm 2.5mm Self Tap Stardrive Cortical T8 Screw Bone 202.890 - [id number] Explanted:Qty: 1 on 01/06/2024 by Davin Fernandez MD at [facility] Screw Left: Ulna Synthes 202.890 / / [...] Junaid Kirk D.O. us Davin Fernandez MD IMMichael XR PROCEDURE S Final Result * X-ray [...] Final Result from Last 3 Months Insurance [facility] BL CHOICE [place]F PPO [place] Advance Directives For more information, please contact: [phone] * Full Code (Latest Code Status on File) Date Activated Date Inactivated Comments 01/06/2024 4:14 PM 01/07/2024 9:34 PM * Full Code Date Activated Date Inactivated Comments 01/05/2024 11:54 PM 01/06/2024 4:14 PM Care Teams Ex Assistant/Program Director Relationship Specialty Start Date End Date Justus Bran MD [address] [place] [id number] PCP - General Family Medicine 04/08/22
[2024-08-24 15:49] LABS: Basophils Percent Auto 0.2 % (0.2-1.2); Eosinophils Absolute Auto 0.1 K/mm3 (0-0.3); Eosinophils Percent Auto 2.3 % (0-4.4); Hemoglobin 10.5 g/dL (14.0-18.0); Lymphocytes Absolute Auto 0.75 K/mm3 (0.9-3.2); Lymphocytes Percent Auto 15.9 % (18.3-44.2); Mean Corpuscular HGB Conc 31.8 g/dl (32-36); Mean Corpuscular Hemoglobin 26.8 pg (26-34); Mean Corpuscular Volume 84.2 fl (80-100); Mean Platelet Volume 8.1 fl (7.4-10.4); Monocytes Absolute Auto 0.3 K/mm3 (0.1-0.6); Monocytes Percent Auto 6.4 % (2.6-8.5); Neutrophils Absolute Auto 3.6 K/mm3 (1.3-6.7); Neutrophils Percent Auto 75.2 % (45.5-73.1); Platelet Count Result 225 k/mm3 (150-375); Red Blood Count 3.92 M/mm3 (4.6-6.20); Red Cell Distribution Width 13.6 % (11.5-14.5); White Blood Count 4.7 K/mm3 (4.5-10.0)
[2024-08-24 16:05] LABS: Albumin Level 3.9 g/dL (3.5-5.1); Estimated Glomerular Filt Rate > 60; Glucose 91 mg/dL (65-110)
[2024-08-24 17:06] LABS: MRSA (PCR) NOT DETECTED (NOT DETECTE)
[2024-08-24 17:25] LABS: Urine Cotinine NEGATIVE
[2024-08-24 19:47] LABS: Hemoglobin A1C 5.3 % (<5.7)
== END 2024-08-24 13:49 | disposition home or self-care (01) ==
LOC: ANHSURGERY 13:54
PROVIDERS: PCP Family Medicine; Visit Provider Orthopaedic Surgery
DX: Z01.818 Encounter for other preprocedural examination (principal); M17.11 Unilateral primary osteoarthritis, right knee
CPT/HCPCS: 80307; 82040; 82565; 82947; 83036; 85025; 87641

== ENCOUNTER 2024-09-13 02:19 | Day surgery (SDC) | payer MEDICARE, SELFPAY ==
--- NOTE | 2024-08-24 14:02 | PC.NURSE ---
Report to the Outpatient Waiting Room, entrance under the green pavilion located off [facility], at time __6:30AM on date ___09/13/24____. Planned Procedure Time: ___8:30AM .? Time changes happen often and if your time is changed the preop area will call you the afternoon before. - You and your visitor will be asked to self-screen and do not enter if you have any COVID symptoms. Please call surgeon if you need to reschedule. - A mask is optional within the hospital at this time. Patients may have clear liquids (water, carbonated beverages, clear teas, apple juice) until 3 hours prior to surgery (5:30AM) with a maximum of 20 ounces. - No food from midnight until time of surgery and no smoking, or chewing tobacco (or any form of nicotine). No chewing gum, candy or mints. Take only the following medications with a SIP of water on the morning of surgery: __AMLODIPINE, SERTRALINE DO NOT STOP ANY OF YOUR OTHER PRESCRIPTION MEDICATIONS PRIOR TO SURGERY EXCEPT THE FOLLOWING Hold all vitamins and supplements for 3 days per anesthesiologist. Medications to discontinue per physician ___HOLD MELOXICAM (ALL NSAIDS- IBUPROFEN, ADVIL, MOTRIN, ALEVE, ASPIRIN)-7 DAYS PRE-OP Date to take last dose____09/05/24 Please no make-up, nail spanish, hairspray, perfume, deodorant, or body powder the day of surgery.? No jewelry (including any body piercings) or valuables the day of surgery, leave them at home.? Please take a shower or bath the night before, or the morning of, surgery with an antibacterial soap.? Wear comfortable, loose fitting clothing.? - Jewelry must be removed prior to entering the operating room.? Rings and piercings that are not removed may be cut off. - The hospital will not accept responsibility for valuables.? - Please leave all valuables, including medications, at home the day of surgery. If you are going home after surgery, a licensed tanker truck driver must drive you home.? - NO public transportation without another adult if you receive anesthesia. - We recommend that an adult stay with you for 24 hours following discharge. - We also recommend that you do not drive, make important decision, drink alcoholic beverages, or take any drugs that were not prescribed by your health care provider for at least 24 hours after your discharge time. Follow any additional instructions given to you from your surgeon. Telephone instructions given to ___PATIENT AND WIFE and asked if any additional questions and then verbalized understanding. Patient advised to call surgeon office or pre surgery nurse liaison [phone] if any additional questions.
[2024-08-24 14:04] VITALS: BP 120/63; PULSE 72; RESP 16; TEMP 36.8; O2SAT 97; BMI 29.1
[2024-09-13] VITALS (8 sets, daily range): BP systolic 117–154; BP diastolic 58–85; PULSE 66–83; RESP 14–20; TEMP 36.2–36.9; O2SAT 92–100
--- NOTE | ~2024-09-13 | XR_ITS ---
[id number] Ordering provider: Grant Chaney MD History: . POST OP RIGHT TKA . Comparison: None. FINDINGS: BONES: No acute fracture or dislocation. JOINT SPACES: Total knee arthroplasty. SOFT TISSUES: Postoperative changes. IMPRESSION: No acute osseous abnormality right knee. Total knee arthroplasty. Reviewed, dictated and finalized at location A.
--- OUTSIDE RECORDS SUMMARY | 2024-09-13 02:24 | XMS_ITS | Clinical Summary ---
Author Organization [facility] Address [address] [place] [address] Care Team Providers Care Experience Designer Name Role Phone Justus Bran MD Primary Care Provider [phone] Allergies No known active allergies Medications amLODIPine [...] Description 07/15/2024 2:00 PM CDT Office Visit [facility] [address] Advanced Medicine 6th [place] [address] [place] [address] Davin Fernandez MD Type III open fracture of olecranon process of left ulna, initial encounter (Primary Dx); Closed fracture of distal end of left ulna, unspecified fracture morphology, initial encounter 07/15/2024 1:30 PM CDT - 07/15/2024 11:59 PM CDT Hospital Encounter [facility] [address] [place] [address] Davin Fernandez MD Type III open fracture [...] on file 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 Plate Left: Ulna Synthes I 08/31/2033 02.247.390S / / [id number] Synthes Lcp Pro-Karl 76mm 8 Hole Low Profile Cut To Length Plate Bone 247.372 - [id number] Implanted:Qty: 1 on 01/06/2024 by Davin Fernandez MD at [facility] Plate Left: Ulna Synthes I 247.372 / / Synthes Lcp Pro-Karl 76mm 8 Hole Low Profile Cut To Length Plate Bone 247.372 - [id number] Implanted:Qty: 1 on 01/06/2024 by Davin Fernandez MD at [facility] Plate Left: Ulna Synthes I 247.372 / / Synthes Dcp 65mmx1.2mm 3 Hole Head 10 Hole Shaft Foot T Plate Bone 243.234 - [id number] Implanted:Qty: 1 on 01/06/2024 by Davin Fernandez MD at [facility] Plate Left: Ulna Synthes I 243.234 / / Synthes 2.7mm 5mm 18mm 2.5mm Self Tap Stardrive Cortical T8 Screw Bone 202.878 - [id number] Implanted:Qty: 1 on 01/06/2024 by Davin Fernandez MD at [facility] Screw Left: Ulna Synthes I 202.878 / / Synthes 2.7mm 5mm 18mm 2.5mm Self Tap Stardrive Cortical T8 Screw Bone 202.878 - [id number] Implanted:Qty: 1 on 01/06/2024 by Davin Fernandez MD at [facility] Screw Left: Ulna Synthes I 202.878 / / Synthes 2.7mm 5mm 20mm 2.5mm Self Tap Stardrive Cortical T8 Screw Bone 202.880 - [id number] Implanted:Qty: 2 on 01/06/2024 by Davin Fernandez MD at [facility] Screw Left: Ulna Synthes 202.880 / / Synthes 2.7mm 5mm 28mm 2.5mm Self Tap Stardrive Cortical T8 Screw Bone 202.888 - [id number] Implanted:Qty: 1 on 01/06/2024 by Davin Fernandez MD at [facility] Screw Left: Ulna Synthes 202.888 / / Synthes 2.7mm 5mm 28mm 2.5mm Self Tap Stardrive Cortical T8 Screw Bone 202.888 - [id number] Implanted:Qty: 1 on 01/06/2024 by Davin Fernandez MD at [facility] Screw Left: Ulna Synthes 202.888 / / Synthes 2.7mm 5mm 36mm 2.5mm Self Tap Stardrive Cortical T8 Screw Bone 202.896 - [id number] Implanted:Qty: 1 on 01/06/2024 by Davin Fernandez MD at [facility] Screw Left: Ulna Synthes 202.896 / / Synthes 2.7mm 5mm 36mm 2.5mm Self Tap Stardrive Cortical T8 Screw Bone 202.896 - [id number] Implanted:Qty: 1 on 01/06/2024 by Davin Fernandez MD at [facility] Screw Left: Ulna Synthes 202.896 / / Synthes 2.7mm 5mm 50mm 2.5mm Self Tap Stardrive Cortical T8 Screw Bone 202.967 - [id number] Implanted:Qty: 1 on 01/06/2024 by Davin Fernandez MD at [facility] Screw Left: Ulna Synthes I 202.967 / / Synthes 2.7mm 5mm 48mm 2.5mm Self Tap Stardrive Cortical T8 Screw Bone 202.966 - [id number] Implanted:Qty: 1 on 01/06/2024 by Davin Fernandez MD at [facility] Screw Left: Ulna Synthes I 202.966 / / Synthes 2.7mm 5mm 24mm 2.5mm Self Tap Stardrive Cortical T8 Screw Bone 202.884 - [id number] Implanted:Qty: 1 on 01/06/2024 by Davin Fernandez MD at [facility] Screw Left: Ulna Synthes 202.884 / / Synthes 2.7mm 5mm 16mm 2.5mm Self Tap Stardrive Cortical T8 Screw Bone 202.876 - [id number] Implanted:Qty: 2 on 01/06/2024 by Davin Fernandez MD at [facility] Screw Left: Ulna Synthes 202.876 / / Synthes 2.7mm 2.1mm 24mm Self Tap Lock Stardrive Thread Head Profile T8 202.224 - [id number] Implanted:Qty: 1 on 01/06/2024 by Davin Fernandez MD at [facility] Screw Left: Ulna Synthes 202.224 / / Synthes 2.4mm 12mm Self Tap Stardrive Cortex T8 Screw Bone 201.762 - [id number] Implanted:Qty: 1 on 01/06/2024 by Davin Fernandez MD at [facility] Screw Left: Ulna Synthes 201.762 / / Synthes 2.4mm 12mm Self Tap Stardrive Cortex T8 Screw Bone 201.762 - [id number] Implanted:Qty: 1 on 01/06/2024 by Davin Fernandez MD at [facility] Screw Left: Ulna Synthes 201.762 / / Synthes 2.4mm 14mm Self Tap Stardrive Cortex T8 Screw Bone 201.764 - [id number] Implanted:Qty: 1 on 01/06/2024 by Davin Fernandez MD at [facility] Screw Left: Ulna Synthes 201.764 / / Synthes 2.4mm 14mm Self Tap Stardrive Cortex T8 Screw Bone 201.764 - [id number] Implanted:Qty: 1 on 01/06/2024 by Davin Fernandez MD at [facility] Screw Left: Ulna Synthes 201.764 / / Synthes 2.7mm 5mm 30mm 2.5mm Self Tap Stardrive Cortical T8 Screw Bone 202.890 - [id number] Implanted:Qty: 1 on 01/06/2024 by Davin Fernandez MD at [facility] Screw Left: Ulna Synthes 202.890 / / Synthes 2.4mm 22mm Self Tap Stardrive Cortex T8 Screw Bone 201.772 - [id number] Implanted:Qty: 1 on 01/06/2024 by Davin Fernandez MD at [facility] Screw Left: Ulna Synthes 201.772 / / Synthes 2.7mm 5mm 12mm 2.5mm Self Tap Stardrive Cortical T8 Screw Bone 202.872 - [id number] Implanted:Qty: 1 on 01/06/2024 by Davin Fernandez MD at [facility] Screw Left: Ulna Synthes 202.872 / / Explanted Type Area Workplace Relations Adviser Device Identifier Shelf Expiration Date Model / Serial / Lot Synthes 2.7mm 5mm 24mm 2.5mm Self Tap Stardrive Cortical T8 Screw Bone 202.884 - [id number] Explanted:Qty: 3 on 01/06/2024 by Davin Fernandez MD at [facility] Screw Left: Ulna Synthes 202.884 / / Synthes 2.7mm 5mm 22mm 2.5mm Self Tap Stardrive Cortical T8 Screw Bone 202.882 - [id number] Explanted:Qty: 1 on 01/06/2024 by Davin Fernandez MD at [facility] Screw Left: Ulna Synthes 202.882 / / Synthes 2.7mm 5mm 30mm 2.5mm Self Tap Stardrive Cortical T8 Screw Bone 202.890 - [id number] Explanted:Qty: 1 on 01/06/2024 by Davin Fernandez MD at [facility] Screw Left: Ulna Synthes 202.890 / / [...] Final Result from Last 3 Months Insurance [facility] CHOICE [place] PPO [place] Advance Directives For more information, please contact: [phone] * Full Code (Latest Code Status on File) Date Activated Date Inactivated Comments 01/06/2024 4:14 PM 01/07/2024 9:34 PM * Full Code Date Activated Date Inactivated Comments 01/05/2024 11:54 PM 01/06/2024 4:14 PM Care Teams Experience Designer Relationship Specialty Start Date End Date Justus Bran MD [address] [place] [id number] PCP - General Family Medicine 04/08/22
--- OUTSIDE RECORDS SUMMARY | 2024-09-13 02:24 | XMS_ITS | Referral Summary ---
Author Organization [facility] Address [address] [place] [address] Care Team Providers Care Human Performance Professor Name Role Phone Justus Bran MD Primary Care Provider [phone] Encounters Date Type Department Care Team Description 07/15/2024 1:30 PM CDT - 07/15/2024 11:59 PM CDT Hospital Encounter [facility] [address] [place] [address] Davin Fernandez MD Type III open fracture of olecranon process of left ulna, initial encounter; Closed fracture of distal end of left ulna, unspecified fracture morphology, initial encounter Discharge Disposition: Discharge to home or self care 07/15/2024 2:00 PM CDT Office Visit [facility] [address] [place] [address] Advanced Medicine 6th [place] [address] [place] [address] Davin Fernandez MD Type III open fracture [...] on file 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 Gender Identity Not on file Sexual [...] on file Medical Devices Implanted Type Area Negative Turner Device Identifier Shelf Expiration Date Model / Serial / Lot Synthes Implant Bone Plate Compression Locking 20 Hole Lcp 2.7mm [id number] - [id number] Implanted:Qty: 1 on 01/06/2024 by Davin Fernandez MD at [facility] Plate Left: Ulna Synthes I 08/31/2033 02.247.390S / / [id number] Synthes Lcp Pro-Karl 76mm 8 Hole Low Profile Cut To Length Plate Bone 247.372 - [id number] Implanted:Qty: 1 on 01/06/2024 by Davin Fernandez MD at [facility] Plate Left: Ulna Synthes I 247.372 / / Synthes Lcp Pro-Karl 76mm 8 Hole Low Profile Cut To Length Plate Bone 247.372 - [id number] Implanted:Qty: 1 on 01/06/2024 by Davin Fernandez MD at [facility] Plate Left: Ulna Synthes I 247.372 / / Synthes Dcp 65mmx1.2mm 3 Hole Head 10 Hole Shaft Foot T Plate Bone 243.234 - [id number] Implanted:Qty: 1 on 01/06/2024 by Davin Fernandez MD at [facility] Plate Left: Ulna Synthes I 243.234 / / Synthes 2.7mm 5mm 18mm 2.5mm Self Tap Stardrive Cortical T8 Screw Bone 202.878 - [id number] Implanted:Qty: 1 on 01/06/2024 by Davin Fernandez MD at [facility] Screw Left: Ulna Synthes I 202.878 / / Synthes 2.7mm 5mm 18mm 2.5mm Self Tap Stardrive Cortical T8 Screw Bone 202.878 - [id number] Implanted:Qty: 1 on 01/06/2024 by Davin Fernandez MD at [facility] Screw Left: Ulna Synthes I 202.878 / / Synthes 2.7mm 5mm 20mm 2.5mm Self Tap Stardrive Cortical T8 Screw Bone 202.880 - [id number] Implanted:Qty: 2 on 01/06/2024 by Davin Fernandez MD at [facility] Screw Left: Ulna Synthes 202.880 / / Synthes 2.7mm 5mm 28mm 2.5mm Self Tap Stardrive Cortical T8 Screw Bone 202.888 - [id number] Implanted:Qty: 1 on 01/06/2024 by Davin Fernandez MD at [facility] Screw Left: Ulna Synthes 202.888 / / Synthes 2.7mm 5mm 28mm 2.5mm Self Tap Stardrive Cortical T8 Screw Bone 202.888 - [id number] Implanted:Qty: 1 on 01/06/2024 by Davin Fernandez MD at [facility] Screw Left: Ulna Synthes 202.888 / / Synthes 2.7mm 5mm 36mm 2.5mm Self Tap Stardrive Cortical T8 Screw Bone 202.896 - [id number] Implanted:Qty: 1 on 01/06/2024 by Davin Fernandez MD at [facility] Screw Left: Ulna Synthes 202.896 / / Synthes 2.7mm 5mm 36mm 2.5mm Self Tap Stardrive Cortical T8 Screw Bone 202.896 - [id number] Implanted:Qty: 1 on 01/06/2024 by Davin Fernandez MD at [facility] Screw Left: Ulna Synthes 202.896 / / Synthes 2.7mm 5mm 50mm 2.5mm Self Tap Stardrive Cortical T8 Screw Bone 202.967 - [id number] Implanted:Qty: 1 on 01/06/2024 by Davin Fernandez MD at [facility] Screw Left: Ulna Synthes I 202.967 / / Synthes 2.7mm 5mm 48mm 2.5mm Self Tap Stardrive Cortical T8 Screw Bone 202.966 - [id number] Implanted:Qty: 1 on 01/06/2024 by Davin Fernandez MD at [facility] Screw Left: Ulna Synthes I 202.966 / / Synthes 2.7mm 5mm 24mm 2.5mm Self Tap Stardrive Cortical T8 Screw Bone 202.884 - [id number] Implanted:Qty: 1 on 01/06/2024 by Davin Fernandez MD at [facility] Screw Left: Ulna Synthes 202.884 / / Synthes 2.7mm 5mm 16mm 2.5mm Self Tap Stardrive Cortical T8 Screw Bone 202.876 - [id number] Implanted:Qty: 2 on 01/06/2024 by Davin Fernandez MD at [facility] Screw Left: Ulna Synthes 202.876 / / Synthes 2.7mm 2.1mm 24mm Self Tap Lock Stardrive Thread Head Profile T8 202.224 - [id number] Implanted:Qty: 1 on 01/06/2024 by Davin Fernandez MD at [facility] Screw Left: Ulna Synthes 202.224 / / Synthes 2.4mm 12mm Self Tap Stardrive Cortex T8 Screw Bone 201.762 - [id number] Implanted:Qty: 1 on 01/06/2024 by Davin Fernandez MD at [facility] Screw Left: Ulna Synthes 201.762 / / Synthes 2.4mm 12mm Self Tap Stardrive Cortex T8 Screw Bone 201.762 - [id number] Implanted:Qty: 1 on 01/06/2024 by Davin Fernandez MD at [facility] Screw Left: Ulna Synthes 201.762 / / Synthes 2.4mm 14mm Self Tap Stardrive Cortex T8 Screw Bone 201.764 - [id number] Implanted:Qty: 1 on 01/06/2024 by Davin Fernandez MD at [facility] Screw Left: Ulna Synthes 201.764 / / Synthes 2.4mm 14mm Self Tap Stardrive Cortex T8 Screw Bone 201.764 - [id number] Implanted:Qty: 1 on 01/06/2024 by Davin Fernandez MD at [facility] Screw Left: Ulna Synthes 201.764 / / Synthes 2.7mm 5mm 30mm 2.5mm Self Tap Stardrive Cortical T8 Screw Bone 202.890 - [id number] Implanted:Qty: 1 on 01/06/2024 by Davin Fernandez MD at [facility] Screw Left: Ulna Synthes 202.890 / / Synthes 2.4mm 22mm Self Tap Stardrive Cortex T8 Screw Bone 201.772 - [id number] Implanted:Qty: 1 on 01/06/2024 by Davin Fernandze MD at [facility] Screw Left: Ulna Synthes 201.772 / / Synthes 2.7mm 5mm 12mm 2.5mm Self Tap Stardrive Cortical T8 Screw Bone 202.872 - [id number] Implanted:Qty: 1 on 01/06/2024 by Davin Fernandez MD at [facility] Screw Left: Ulna Synthes 202.872 / / Explanted Type Area Negative Turner Device Identifier Shelf Expiration Date Model / Serial / Lot Synthes 2.7mm 5mm 24mm 2.5mm Self Tap Stardrive Cortical T8 Screw Bone 202.884 - [id number] Explanted:Qty: 3 on 01/06/2024 by Davin Fernandez MD at [facility] Screw Left: Ulna Synthes 202.884 / / Synthes 2.7mm 5mm 22mm 2.5mm Self Tap Stardrive Cortical T8 Screw Bone 202.882 - [id number] Explanted:Qty: 1 on 01/06/2024 by Davin Fernandez MD at [facility] Screw Left: Ulna Synthes 202.882 / / Synthes 2.7mm 5mm 30mm 2.5mm Self Tap Stardrive Cortical T8 Screw Bone 202.890 - [id number] Explanted:Qty: 1 on 01/06/2024 by Davin Fernandez MD at [facility] Screw Left: Ulna Synthes 202.890 / [...] agrees with it. Electronically signed by: Junaid Kikr D.O. us Davin Fernandez MD IMG XR [...] Advance Directives For more information, please contact: [phone] * Full Code (Latest Code Status on File) Date Activated Date Inactivated Comments 01/06/2024 4:14 PM 01/07/2024 9:34 PM * Full Code Date Activated Date Inactivated Comments 01/05/2024 11:54 PM 01/06/2024 4:14 PM Care Teams Human Performance Professor Relationship Specialty Start Date End Date Justus Bran MD [address] [place] [address] [place] [address] PCP - General Family Medicine 04/08/22
--- NOTE | 2024-09-13 07:05 | WPDANESEPPF ---
Anes - Initial Pre Proc Eval Procedure: Operation Date: 09/13/24 08:30 Proposed Procedures p Right Custom Total Knee Arthroplasty - Grant Chaney MD Date/Time: 09/13/24 07:05 Surgeon: Grant Chaney MD Pre Op Diagnosis: primary OA right knee Patient Data Age: 63 Gender: M Height: 1.8 m Weight: 94.7 kg Last Vital Signs Temp 36.8 C 08/24/24 14:04 Pulse 72 08/24/24 14:04 Resp 16 08/24/24 14:04 BP 120/63 08/24/24 14:04 Pulse Ox 97 08/24/24 14:04 O2 Del Method Room Air 08/24/24 14:04 Allergies Allergy/AdvReac Type Severity Reaction Status Date / Time No Known Allergies Allergy Verified 08/24/24 13:58 Home Medications ?Medication ?Instructions ?Recorded ?Confirmed ?Type amlodipine 10 mg tablet 10 mg PO DAILY #90 tabs 07/17/23 08/24/24 Rx sertraline 100 mg tablet See Rx Instructions .Route 03/04/24 08/24/24 Rx .COMPLEX #90 tabs finasteride 5 mg tablet 5 mg PO DAILY #90 tabs 04/25/24 08/24/24 Rx tamsulosin 0.4 mg capsule See Rx Instructions .Route 04/25/24 08/24/24 Rx .COMPLEX #90 caps sildenafil 100 mg tablet 100 mg PO DAILY PRN sexual 05/11/24 08/24/24 Rx activity #10 tabs losartan 50 mg tablet 50 mg PO DAILY #90 tabs 08/03/24 08/24/24 Rx meloxicam 15 mg tablet 15 mg PO DAILY #90 tabs 08/24/24 08/24/24 Rx Patient hx anesthesia problems: none Family hx anesthesia problems: none Results Review: All pre-operative results and documents have been reviewed as part of the pre-operative evaluation. [facility] Past Medical History Medical History Generalized anxiety disorder Unilateral primary osteoarthritis, right knee Personal history of colonic polyps Obstructive sleep apnea (adult) (pediatric) Generalized osteoarthritis Primary osteoarthritis, unspecified hand Induration penis plastica Benign prostatic hyperplasia with lower urinary tract symptoms Essential (primary) hypertension History of stress test Left hip pain Fecal urgency Hypertension Surgical History Surgical History Status post total hip replacement, left (~10/21/22) Hx of arthroscopic knee surgery right knee History of tooth extraction H/O toe surgery (~04/2019) LEFT FOOT Family History Family History Mother Family history of arthritis Father Cancer Social History Social History Smoking packs per day: 1.5 Smoking cigarettes per day: 30.0 Years smoked: 10 Smoking pack-years: 15.00 Smoking status: Former smoker Tobacco type: cigarettes Second hand tobacco smoke exposure: No Smoking end date: 05/04/83 Additional smoking assessment comments: PT DENIES ALL FORMS OF TOBACCO USE Alcohol intake: current Alcohol use details: STATES MAYBE 2 DRINKS A MONTH Substance use: never Substance use type: does not use Do You Feel Safe in your Home?: Yes Lack of Transportation: No Lack of Food: Never True Current Housing: I Have Housing Concerned About Future Housing: No Difficulty Paying Gas/Electric Bills: No Difficulty Paying for Meds: No Currently Unemployed: No Education: Trade/Vocational Certificate Difficulty w/ Childcare or Family Care: No Living arrangements: with family Additional living arrangements comments: Occupation/Education: occupation Gender identity (if verbalized by the patient): Male Sexual Orientation (if Verbalized by the Patient): Straight or Heterosexual Spiritual care concerns: No Anes - Eval Final PreProcedure Day of Procedure 09/13/24 07:05 Patient weight: overweight Heart: regular rate and rhythm Lungs: clear to auscultation Airway: Mallampati scale class II Neurological: alert and oriented Last oral intake: >/= 8 hours ASA classification: III Emergent: no Anesthetic plan: proceed Anesthesia type and monitoring: general LMA and standard monitoring Results Review: All pre-operative results and documents have been reviewed as part of the pre-operative evaluation. Informed Consent: The patient's anesthetic plan and its attendant risks and benefits were discussed with the patient/family/POA. Questions were solicited and answers provided to the satisfaction of the patient/family/POA.
[2024-09-13] MEDS: ACETAMINOPHEN 500 MG TABLET 1000 MG PO (07:30)
[2024-09-13] MEDS: TRANEXAMIC ACID 1,000MG/ISO100 1,000 MG/100 ML BAG 200 MG IVPB (07:30)
--- NOTE | 2024-09-13 07:55 | WPDHPUPDATE1 ---
History and Physical Update Update Date/Time: 09/13/24 07:55 History and Physical has been reviewed, including an updated exam of the patient. There are NO changes in the patient's condition. Risks, benefits, and alternatives have been discussed and questions answered. Patient agrees to proceed with procedure.
[2024-09-13] MEDS: ceFAZolin 2 GM/D5W 50 ML 2 GM/50 ML BAG IVPB (08:29)
[2024-09-13] MEDS: SODIUM CHLORIDE 0.9% IV 37.7 ML, MORPHINE SULFATE INJ (*CRX) 2 MG, ROPivacaine HCL 1% 2... INFILTRATE (08:52)
[2024-09-13] MEDS: TRANEXAMIC ACID 1,000 MG/10 ML AMPUL 1000 MG IV PUSH (08:56)
[2024-09-13] MEDS: LACTATED RINGERS 1,000 ML 30 ML IV CONT ×2 (09:15→10:28)
--- NOTE | 2024-09-13 12:48 | SUR.PHASEII ---
Patient began working with physical therapy at 1138. Patient then was seen by occupational therapy. OT was finished with patient at 1245.
--- NOTE | 2024-09-13 16:11 | W.PM.PROC2 ---
Procedure Note - Detailed Date of Procedure 09/13/24 Pre-op Diagnosis primary OA right knee Post-op Diagnosis Same Procedure Performed Total knee arthroplasty, right custom Surgeon Grant Chaney MD Hebrew Cantor Viki Ibarra PA-C Anesthesia General Findings Custom implants with optimal fit. Severe synovitis suggesting inflammatory disease. 15 degree flexion contracture treated with posteromedial femur capsule release. Description of Procedure Preoperative antibiotics were given. The limb was prepped and draped in the usual sterile fashion with a well-padded tourniquet high on the thigh. The limb was exsanguinated and the tourniquet inflated to 300 mmHg. A longitudinal incision was created just medial to the patella. A trivector approach to the knee was performed. Arthrotomy was taken down through the joint capsule. No significant releases were initially taken. The femur was exposed and the F1 jig was applied. The coring tool was used to remove the cartilage for the F2 jig to sit flush with the bone. The jig was pinned and the distal cut carefully taken. Caliper measurements confirmed appropriate bony resections according to the preoperative templated plan. The F4 cutting jig for the femur was applied, at the standard rotation. The AP and anterior chamfer cuts were taken. The F5 jig was applied and the posterior chamfer cuts were taken. The tibia was prepared using the T1 jig, after removing cartilage for the jig contact points. Proper alignment was checked with the alignment sulma. The tibia was cut using the T1u guide. Gap balancing was performed. Gap measurements were taken and the knee was trialed. Excellent alignment and soft tissue balancing was confirmed. The posterior cruciate ligament was recessed along the proximal tibia. The patella was cut for resurfacing. Three lug holes were drilled. Meniscal remnants were removed. The trial components were assembled. Excellent range of motion and proper soft tissue balancing were confirmed throughout the full range of motion. Patellar tracking was excellent. The knee was copiously irrigated periodically throughout the procedure. The real implants were cemented into position. Excess cement was carefully removed. The wound was closed in layers with interrupted #1 Vicryl suture, 2-0 strata fix suture, 0 strata fix suture, 2-0 strata fix suture. Steri-Strips placed on the skin with the knee flexed. Sterile bulky dressing applied. The patient was brought to the recovery room in stable condition. There were no complications. Physician tax assistant, Viki Ibarra PA-C, required for surgery; including patient positioning, draping, tissue retraction, maintaining instrument position, cement removal, wound closure, and dressing placement. Implants Conformis Custom total knee arthroplasty. Cemented. Cruciate retaining. 7A insert. 38 mm oval patella. Estimated Blood Loss 50 Drains No Complications No immediate complications Condition Stable Disposition PACU [facility] Billing Surgery - Charge Forward: Surgery Billing
== END 2024-09-13 13:10 | disposition home or self-care (01) ==
PROVIDERS: PCP Family Medicine; Visit Provider Orthopaedic Surgery
PROC: (CPT 27447; principal; 2024-09-13 08:30)
DX: M17.11 Unilateral primary osteoarthritis, right knee (principal); Z87.891 Personal history of nicotine dependence
CPT/HCPCS: 27447; 36415; 73560; 86850; 86900; 86901; 97110; 97161; 97165; A9270; C1713; C1776; J0171; J0690; J1100; J1171; J1596; J1885; J2003; J2250; J2270; J2371; J2405; J2704; J2795; J3010; J7120

== ENCOUNTER 2024-12-06 07:51 | Outpatient (CLI) | payer MEDICARE, OTHER, SELFPAY ==
--- NOTE | ~2024-12-06 | MR_ITS ---
MRI of the brain Clinical History: Amnesia Technique: Axial and sagittal T1-weighted images were acquired. These were followed by axial T2-weigh aleyda, diffusion weighted, gradient, and FLAIR images. Findings: There is no acute infarct, intracranial hemorrhage or mass lesion. There are a few scattere d white matter lesions in the subcortical white matter, compatible mild chronic microvascular ischemi c change. Ventricles and subarachnoid spaces are unremarkable. Orbits are unremarkable. Paranasal sinuses and m astoid air cells are clear. Major intracranial flow voids appear intact. Sagittal midline structures are intact. IMPRESSION: Mild chronic microvascular ischemic change, otherwise unremarkable exam. Reviewed, dictated and finalized at location M.
== END 2024-12-06 07:52 | disposition home or self-care (01) ==
LOC: MICIMG 07:52
PROVIDERS: PCP Family Medicine; Visit Provider Family Medicine
DX: R41.3 Other amnesia (principal); R93.0 Abnormal findings on diagnostic imaging of skull and head, not elsewhere classified
CPT/HCPCS: 70551